=== PATIENT | male | born 1955 | race Caucasian/White ===

== ENCOUNTER 2024-12-02 02:26 | Observation (INO) ==
--- NOTE | 2024-12-02 03:01 | Emergency Department Note ---
History of Present Illness General Chief complaint: Stroke Alert Stated complaint: LOSS OF BAL, RT NUMBNESS Time Seen by Provider: 12/02/24 02:34 History of Present Illness This 62-year-old with history coronary disease, diabetes and blood pressure presents to the ER for right arm numbness and right arm and leg weakness and right hand difficulty grasping objects since 1700 last night. Patient states Wednesday he went for cardiac catheterization and is due to be scheduled for CABG. He is unsure of the abnormalities. Patient states he mainly came in because he had difficulties walking and grasping objects. He comes in at 3 AM the next day from the onset of symptoms. Patient denies chest pain, dyspnea, fever, chills, loss of vision, facial numbness or tingling. No history of stroke. No history of blood clot. Home Medications Medication Instructions Recorded Confirmed Type amlodipine 5 mg tablet 5 mg PO DAILY #30 tabs 04/11/19 12/02/22 Rx aspirin 81 mg tablet,delayed 81 mg PO DAILY #30 tabs 04/11/19 12/02/22 Rx release clopidogrel 75 mg tablet 75 mg PO DAILY #30 tabs 04/11/19 12/02/22 Rx fenofibrate micronized 200 mg 200 mg PO DAILY #30 caps 04/11/19 12/02/22 Rx capsule insulin aspart U-100 100 unit/mL 32 units (0.32 mL) subcut TID #10 04/11/19 12/02/22 Rx subcutaneous solution (Novolog mL U-100 Insulin aspart) levothyroxine 200 mcg tablet 200 mcg PO DAILY #30 tabs 04/11/19 12/02/22 Rx metformin 1,000 mg tablet 1,000 mg PO BID #60 tabs 04/11/19 12/02/22 Rx metoprolol tartrate 25 mg tablet 25 mg PO BID #60 tabs 04/11/19 12/02/22 Rx pravastatin 20 mg tablet 20 mg PO DAILY #90 tabs 07/31/19 12/02/22 Rx tamsulosin 0.4 mg capsule 0.4 mg PO DAILY #90 caps 11/18/23 Rx Allergies Allergy/AdvReac Type Severity Reaction Status Date / Time No Known Allergies Allergy Verified 12/02/22 09:18 Past Med/Surg History Problem List (Updated 12/02/24 @ 04:10 by Denise Garner PA-C) Stroke-like symptoms (Acute) Bilateral nephrolithiasis BPH w urinary obs/LUTS Hematuria (Acute) Dyslipidemia Stented coronary artery CAD (coronary artery disease) HTN (hypertension) (Chronic) Thyroid disease (Chronic) Acute myocardial infarction (Acute) Social History Smoking Status: Never smoker Tobacco Type: Smokeless Tobacco (Dip or Chew) Preferred Language: Serbian Feels Safe at Home: Yes Review of Systems A total of 10 systems reviewed and were otherwise negative Physical Exam Vital Signs Vital Signs - 24 hr 12/02/24 02:29 12/02/24 02:41 12/02/24 02:48 Temperature 36.4 C L Temperature Source Temporal Artery Scan Pulse Rate 68 69 68 Pulse Rate from SpO2 Sensor 68 Respiratory Rate 18 19 Respiratory Effort / Characteristics Non-Labored Spontaneous Respiratory Depth Normal Blood Pressure 160/89 H Blood Pressure Mean 112 Pulse Oximetry 95 96 Oxygen Delivery Method Room Air Room Air Sepsis Recent Fever Within 48 Hours No Sepsis New/Unexplained Change in Mental Status No Sepsis Action Taken by Nursing No Action Required 12/02/24 03:12 12/02/24 03:30 12/02/24 03:48 Temperature Temperature Source Pulse Rate 70 76 70 Pulse Rate from SpO2 Sensor 71 63 70 Respiratory Rate 15 16 15 Respiratory Effort / Characteristics Respiratory Depth Blood Pressure 193/103 H 150/87 H Blood Pressure Mean 133 108 Pulse Oximetry 96 94 96 Oxygen Delivery Method Room Air Room Air Room Air Sepsis Recent Fever Within 48 Hours Sepsis New/Unexplained Change in Mental Status Sepsis Action Taken by Nursing VITALS: Vitals are noted on the nurse's note and reviewed by myself. Vital signs stable. GENERAL: Pleasant gentleman, in no acute distress, nondiaphoretic, well- developed well-nourished. SKIN: The skin was without rashes, erythema, edema, or bruising. There is no tenting of the skin. Capillary reflex less than 2 seconds. HEAD: Normocephalic atraumatic. EARS: External auditory canals clear EYES: Pupils equal round and reactive to light and accommodation. Conjunctivae without injection, sclerae without icterus. Extraocular movements intact. NOSE: Patent, no discharge. MOUTH: Mucous membranes moist. Pharynx without erythema or exudate. Uvula midline. Airway patent. Tongue does not deviate. NECK: Supple without nuchal rigidity. No lymphadenopathy. No thyromegaly. Cervical spine is nontender. No JVD. HEART: Regular rate and rhythm LUNGS: Clear to auscultation bilaterally without wheezes, rales or rhonchi. No retractions or accessory muscle use. ABDOMEN: Positive bowel sounds x 4. Normal tympanic percussion. Soft, nontender, without masses or organomegaly. Cross sign negative. No guarding or rebound tenderness. No CVA tenderness MUSCULOSKELETAL: No muscle atrophy, erythema, or edema noted. Right arm slightly weaker than the left, right leg slightly weaker than the left. Patient has difficulty grasping with the right hand. No difficulties grasping with the left hand. NEURO: Patient was alert and oriented to person place and time. Normal sensation to light and sharp touch. Patient has difficulty grasping with the right hand. Patient has difficulty with [id number] with the right hand. Patient has no deficits with the left hand with grasping objects or [id number]. No other focal neurological deficits. NIH of 3 Course Administered Medications Discontinued Medications Sodium Chloride (Nss) 500 mls @ 999 mls/hr IV .Q31M ONE Stop: 12/02/24 03:54 Last Infusion: 12/02/24 04:06 Dose: Infused Documented By: Admin: 12/02/24 03:33 Dose: 999 mls/hr Documented By: SRAVANTHI Ioversol (Optiray 320 125ml) 118 ml IV ONCE ONE Stop: 12/02/24 03:14 Last Admin: 12/02/24 03:13 Dose: 118 ml Documented By: THO Critical Care Time Critical Care Time: Yes Total Critical Care Time: 35 I have personally spent 35 minutes of critical care time in the direct management of this patient. This includes bedside care, interpretation of diagnostic studies, and testing, discussion with consultants, patient, and family members, and other required patient management activities. This 35 minutes is in excess of all separately billable procedures. Medical Decision Making Medical Records Attestation: I reviewed the patient's medical records. Home Medications Current Medication List: was personally reviewed by me Laboratory Data Attestation: I reviewed the patient's lab results. 12/02/24 02:40 12/02/24 02:40 Lab Results 07/12/25 07/12/25 07/12/25 Range/Units 02:40 02:44 02:50 WBC 6.39 (4.8-10.8) K/ul RBC 4.96 (4.70-6.10) M/uL Hgb 14.0 (14.0-18.0) g/dl POC Hgb 14.3 (14.0-18.0) g/dl Hct 43.0 (42.0-52.0) % POC Hct 42 (42-52) % MCV 86.7 (80.0-100.0) fL MCH 28.2 (25.0-34.0) pg MCHC 32.6 (32.0-36.0) g/dL RDW Std Deviation 43.2 (36.4-46.3) fL RDW Coeff of Nikolay 13.7 (11.5-14.5) % Plt Count 191 (130-400) K/uL MPV 11.7 (9.4-12.4) fL Immature Gran % (Auto) 0.5 % Neut % (Auto) 53.3 % Lymph % (Auto) 27.5 % [place] % (Auto) 13.1 % Eos % (Auto) 4.2 % Baso % (Auto) 1.4 % Neut # (Auto) 3.40 (1.40-6.50) K/uL Lymph # (Auto) 1.76 (1.20-3.40) K/uL [place] # (Auto) 0.84 H (0.11-0.59) K/uL Eos # (Auto) 0.27 (0.00-0.50) K/uL Baso # (Auto) 0.09 (0.00-0.20) K/uL Immature Gran # (Auto) 0.03 (0.01-0.20) K/uL PT 11.2 (9.0-12.0) Seconds INR 1.0 (0.9-1.1) APTT 27 (21-31) Seconds PTT Ratio 1.0 POC Sodium 143 (135-144) mmol/L Sodium 142 (136-145) mmol/L POC Potassium 4.0 (3.3-5.0) mmol/L Potassium 4.0 (3.5-5.1) mmol/L POC Chloride 106 (101-112) mmol/L Chloride 107 (98-107) mmol/L Carbon Dioxide 27 (21-32) mmol/L POC Total CO2 25 (24-31) mmol/L Anion Gap 8 (3-11) POC Anion Gap 18.0 (16-25) mmol/L POC BUN 30 H (7-18) mg/dl BUN 29 H (6-23) mg/dl Creatinine 1.71 H (0.6-1.4) mg/dl POC Creatinine 1.8 H (0.6-1.3) mg/dl Est Cr Clr Drug Dosing 57.9 ml/min eGFR 43.33 BUN/Creatinine Ratio 17.0 (10-20) Glucose 119 H (70-99(Fasting)) mg/dl POC Glucose 115 H (70-99) mg/dl POC Glucose (other) 118 H (70-99) mg/dl Calcium 10.1 (8.6-10.3) mg/dl POC Ioniz Calcium Samuel 1.22 (1.12-1.32) mmol/l Magnesium 1.8 (1.7-2.4) mg/dl Total Bilirubin 0.4 (0.2-1.0) mg/dl AST 19 (13-39) U/L ALT 15 (7-52) U/L Alkaline Phosphatase 46 (34-104) U/L Troponin I High Sens 21.5 H (0-20) pg/ml Total Protein 7.7 (6.0-8.3) gm/dl Albumin 4.3 (3.4-5.0) gm/dl Globulin 3.4 (2.5-4.0) gm/dl Albumin/Globulin Ratio 1.3 (0.9-2) Imaging Data Attestation: I personally reviewed and interpreted this imaging study as follows: Radiologist's Impression: Head CT 12/02/24 02:41 EXAM: CT head/brain wo con CLINICAL HISTORY: neuro deficit, acute stroke suspected, R arm/leg TECHNIQUE: Multiple axial images are obtained from the skull base to the vertex without contrast. CT scan was performed according to ALARA (as low as reasonable achievable). COMPARISON: None. FINDINGS: There is cerebral atrophy. No evidence of space occupying lesion, hemorrhage, edema, mass effect, midline shift, extra axial collection, or hydrocephalus is noted. Basal cisterns are symmetric and normal in size and configuration. There are scattered periventricular hypodensities as can be seen with chronic microvascular ischemic changes. The orozco-white matter differentiation is preserved. Bilateral maxillary sinusitis. Rest of paranasal sinuses and mastoid air cells are well aerated. Orbital contents are within normal limits. Bony structures are intact. IMPRESSION: 1. No evidence of acute intracranial abnormality is demonstrated. 2. Chronic microvascular ischemic changes. 3. Cerebral atrophy. 4. CT scan is negative for large territorial ischemic / hemorrhagic stroke. 5. Non contrast CT can be negative in the setting of hyperacute infarct/small ischemic infarct and further evaluation with diffusion weighted MRI is recommended as clinically appropriate. Electronically signed by Anjel Edge 12-02-2024 03:36 AM Head CTA 12/02/24 02:41 EXAM: CT angio head w con CLINICAL HISTORY: neuro deficit, acute stroke suspected, R arm/leg TECHNIQUE: Contrast enhanced thin slice CT angiography scan of the cerebral vessels was performed with intravenous contrast. Angiographic images were processed, 3D MIP images were acquired for interpretation. Contiguous axial images were obtained. Reformatted coronal and sagittal images were also reviewed. If IV contrast material had not been administered, the likelihood of detecting abnormalities relevant to the patients condition would have been substantially decreased. CT scan was performed according to ALARA (as low as reasonable achievable). COMPARISON: none FINDINGS: Diffuse atheroscleotic changes with eccentric calcifications involving C5-C7 segments of bilateral internal carotid areteries with no significant stenosis Rest of the bilateral internal carotid arteries show normal course, calibre and opacification. Their division into the anterior cerebral artery and middle cerebral artery is defined. 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 M1, M2 segments are normal on both the sides. Bilateral vertebral arteries are seen to unite the form the basilar artery in a normal fashion. Non dominant right vertebral artery Basilar artery shows normal course, caliber and opacification. Its division into the posterior cerebral arteries is defined. Bilateral P1 and P2 segments are normal. Visualized venous structures show normal opacification. No evidence of intracranial aneurysm or AV malformation is seen. IMPRESSION: 1. No evidence of aneurysm. No evidence of dissection. 2. 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 Diffuse atheroscleotic changes with eccentric calcifications involving C5-C7 segments of bilateral internal carotid areteries with no significant stenosis 4. Non dominant right vertebral artery Electronically signed by Anjel Edge 12-02-2024 03:59 AM Neck CTA 12/02/24 02:41 EXAM: CT angio neck with con CLINICAL HISTORY: neuro deficit, acute stroke suspected, R arm/leg TECHNIQUE: Contrast enhanced thin slice CT angiography scan of the carotid vessels was performed with intravenous contrast. Angiographic images were processed, 3D MIP images were acquired for interpretation.Contiguous axial images were obtained. Reformatted coronal and sagittal images were also reviewed. If IV contrast material had not been administered, the likelihood of detecting abnormalities relevant to the patients condition would have been substantially decreased. CT scan was performed according to ALARA (as low as reasonable achievable). COMPARISON: None. FINDINGS: Atherosclerotic calcifications are noted involving bilateral carotid bulb without significant stenosis. Included great vessels of the aortic arch are grossly unremarkable. Common carotid artery, carotid Bulb, internal carotid artery , and origin of the external carotid artery are well opacified. Vertebral arteries are well opacified. Jugular veins are well opacified. Included lung apices are grossly unremarkable. Thyroid gland appears unremarkable. IMPRESSION: No evidence of stenosis or aneurysm. No evidence of dissection. Atherosclerotic calcifications are noted involving bilateral carotid bulb without significant stenosis. Electronically signed by Anjel Edge 12-02-2024 03:48 AM [facility] Narrative Prior records/ancillary studies reviewed and summarized above. Nursing notes reviewed. Additional history obtained from family. The patient's history was concerning for stroke symptoms. Differential diagnosis: Etiologies such as CVA, TIA, metabolic, infection, hypo/hyperglycemia, electrolyte abnormalities, cardiac sources, intracerebral event, toxicologic, neurologic, as well as others were entertained. Physical examination: As above. ER treatment provided: IV Lock An order was placed for continuous cardiac monitoring. The monitor shows a rate of 60-100 with a sinus rhythm per my interpretation. Stroke alert was immediately initiated upon my evaluation and patient was sent down for imaging I reviewed the patient's recent cardiac catheterization report. He is recommended to have a CABG for his coronary artery disease. On reassessment the patient felt better. Diagnostics interpretation by me: ECG: Ordered for stroke symptoms EKG: Normal sinus, normal intervals, Q waves in the inferior leads, rate of 67. Impression normal sinus rhythm Q waves in the inferior leads independently interpreted by myself The labs Independently Interpreted by myself revealed no worrisome leukocytosis, creatinine 1.7, glucose 119. NIH of 3 (patient has some mild weakness in the right arm and right leg and difficulty grasping objects with the right hand) Imaging studies: Imaging was reviewed and read by radiology Consultation: A consultation was placed with the telestroke neurologist at [facility], Dr Shonda Ortiz. The case was discussed and diagnostics were reviewed. The patient was evaluated in the ER for further treatment. She states the patient is outside the window for TNK and recommends brain MRI and admission for stroke workup. Consultation was placed with medicine and the case was discussed. Patient will be admitted to the medical service. Brain MRI was ordered. Exam and history seem consistent with possible CVA. Telestroke was admittedly initiated upon my initial evaluation despite the patient being outside the window for treatment for TNK. Imaging was negative. Telestroke recommends brain MRI and admission for stroke workup. Medicine was consulted and the case was discussed. Patient was mated to the medical service. Patient and family are agreeable. By the evaluation outlined above emergent etiologies such as infection, electrolyte abnormalities, cardiac sources, toxologic, abnormalities blood glucose, metabolic, as well as others were deemed relatively unlikely. The pt informed about the findings as listed above. All questions were answered and pleased with the treatment. The chart was completed utilizing [employer] Speech voice recognition software. Grammatical errors, random word insertions, pronoun errors, and incomplete sentences are an occassional consequence of this system due to software limitations, ambient noise, and hardware issues. Any formal questions or concerns about the content, text, or information contained within the body of this dictation should be directly addressed to the physician real estate executive assistant for clarification. Impression & Plan Stroke-like symptoms Discharge Plan Visit Data Chief Complaint: Stroke Alert Stated Complaint: LOSS OF BAL, RT NUMBNESS ED Provider: Lora Flores ED Midlevel Provider: Denise Garner Discharge Problem: Stroke-like symptoms Patient Disposition: Admitted As Inpatient Condition: Fair Forms Stand Alone Forms: My [facility] [place] [facility] Prescriptions Prescriptions: No Action pravastatin 20 mg tablet 20 mg PO DAILY Qty: 90 3RF tamsulosin 0.4 mg capsule 0.4 mg PO DAILY Qty: 90 3RF clopidogrel 75 mg tablet 75 mg PO DAILY Qty: 30 2RF metformin 1,000 mg tablet 1,000 mg PO BID Qty: 60 2RF Novolog U-100 Insulin aspart 100 unit/mL solution 32 units SQ TID Qty: 10 2RF aspirin 81 mg tablet,delayed release (DR/EC) 81 mg PO DAILY Qty: 30 2RF fenofibrate micronized 200 mg capsule 200 mg PO DAILY Qty: 30 2RF levothyroxine 200 mcg tablet 200 mcg PO DAILY Qty: 30 2RF metoprolol tartrate 25 mg tablet 25 mg PO BID Qty: 60 2RF amlodipine 5 mg tablet 5 mg PO DAILY Qty: 30 2RF Referrals Referrals: Anjel Martinez MD [Primary Care Provider] -
[2024-12-02 03:02] LABS: Hematocrit (blood only) 43.0 % (42.0-52.0); Hemoglobin 14.0 g/dl (14.0-18.0); Immature Granulocytes # (auto) 0.03 K/uL (0.01-0.20); Immature Granulocytes % (auto) 0.5 %; Mean Corpuscular Hemoglobin 28.2 pg (25.0-34.0); Mean Corpuscular Volume 86.7 fL (80.0-100.0); Platelet Count 191 K/uL (130-400); RDW Standard Deviation 43.2 fL (36.4-46.3); Red Blood Count 4.96 M/uL (4.70-6.10); White Blood Count 6.39 K/ul (4.8-10.8)
[2024-12-02] MEDS: OPTIRAY 320 125ml IV ONE (03:13)
[2024-12-02 03:19] LABS: Alanine Aminotransferase 15.0 U/L (7-52); Albumin Globulin Ratio 1.3 (0.9-2); Alkaline Phosphatase 46.0 U/L (34-104); Anion Gap 8.0 (3-11); Bilirubin,Total 0.4 mg/dl (0.2-1.0); Blood Urea Nitrogen 29.0 mg/dl (6-23); Calcium 10.1 mg/dl (8.6-10.3); Carbon Dioxide 27.0 mmol/L (21-32); Chloride 107.0 mmol/L (98-107); Creatinine Clr Calc Pharmacy 57.9 ml/min; Globulin 3.4 gm/dl (2.5-4.0); Glucose 119.0 mg/dl (70-99(Fasting)); Magnesium 1.8 mg/dl (1.7-2.4); Potassium 4.0 mmol/L (3.5-5.1); Sodium 142.0 mmol/L (136-145); Total Protein 7.7 gm/dl (6.0-8.3)
[2024-12-02 03:28] LABS: INR 1.0 (0.9-1.1); Partial Thromboplastin Time 27 Seconds (21-31); Prothrombin Time 11.2 Seconds (9.0-12.0)
[2024-12-02] MEDS: SODIUM CHLORIDE 0.9% 500 ML IV ONE (03:33)
--- NOTE | 2024-12-02 03:36 | CT Scan Report ---
EXAM: CT head/brain wo con CLINICAL HISTORY: neuro deficit, acute stroke suspected, R arm/leg TECHNIQUE: Multiple axial images are obtained from the skull base to the vertex without contrast. CT scan was performed according to ALARA (as low as reasonable achievable). COMPARISON: None. FINDINGS: There is cerebral atrophy. No evidence of space occupying lesion, hemorrhage, edema, mass effect, midline shift, extra axial collection, or hydrocephalus is noted. Basal cisterns are symmetric and normal in size and configuration. There are scattered periventricular hypodensities as can be seen with chronic microvascular ischemic changes. The orozco-white matter differentiation is preserved. Bilateral maxillary sinusitis. Rest of paranasal sinuses and mastoid air cells are well aerated. Orbital contents are within normal limits. Bony structures are intact. IMPRESSION: 1. No evidence of acute intracranial abnormality is demonstrated. 2. Chronic microvascular ischemic changes. 3. Cerebral atrophy. 4. CT scan is negative for large territorial ischemic / hemorrhagic stroke. 5. Non contrast CT can be negative in the setting of hyperacute infarct/small ischemic infarct and further evaluation with diffusion weighted MRI is recommended as clinically appropriate. Electronically signed by Anjel Edge 12-02-2024 03:36 AM
--- NOTE | 2024-12-02 03:49 | CT Scan Report ---
EXAM: CT angio neck with con CLINICAL HISTORY: neuro deficit, acute stroke suspected, R arm/leg TECHNIQUE: Contrast enhanced thin slice CT angiography scan of the carotid vessels was performed with intravenous contrast. Angiographic images were processed, 3D MIP images were acquired for interpretation.Contiguous axial images were obtained. Reformatted coronal and sagittal images were also reviewed. If IV contrast material had not been administered, the likelihood of detecting abnormalities relevant to the patients condition would have been substantially decreased. CT scan was performed according to ALARA (as low as reasonable achievable). COMPARISON: None. FINDINGS: Atherosclerotic calcifications are noted involving bilateral carotid bulb without significant stenosis. Included great vessels of the aortic arch are grossly unremarkable. Common carotid artery, carotid Bulb, internal carotid artery , and origin of the external carotid artery are well opacified. Vertebral arteries are well opacified. Jugular veins are well opacified. Included lung apices are grossly unremarkable. Thyroid gland appears unremarkable. IMPRESSION: No evidence of stenosis or aneurysm. No evidence of dissection. Atherosclerotic calcifications are noted involving bilateral carotid bulb without significant stenosis. Electronically signed by Anjel Edge 12-02-2024 03:48 AM
--- NOTE | 2024-12-02 04:00 | CT Scan Report ---
EXAM: CT angio head w con CLINICAL HISTORY: neuro deficit, acute stroke suspected, R arm/leg TECHNIQUE: Contrast enhanced thin slice CT angiography scan of the cerebral vessels was performed with intravenous contrast. Angiographic images were processed, 3D MIP images were acquired for interpretation. Contiguous axial images were obtained. Reformatted coronal and sagittal images were also reviewed. If IV contrast material had not been administered, the likelihood of detecting abnormalities relevant to the patients condition would have been substantially decreased. CT scan was performed according to ALARA (as low as reasonable achievable). COMPARISON: none FINDINGS: Diffuse atheroscleotic changes with eccentric calcifications involving C5-C7 segments of bilateral internal carotid areteries with no significant stenosis Rest of the bilateral internal carotid arteries show normal course, calibre and opacification. Their division into the anterior cerebral artery and middle cerebral artery is defined. 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 M1, M2 segments are normal on both the sides. Bilateral vertebral arteries are seen to unite the form the basilar artery in a normal fashion. Non dominant right vertebral artery Basilar artery shows normal course, caliber and opacification. Its division into the posterior cerebral arteries is defined. Bilateral P1 and P2 segments are normal. Visualized venous structures show normal opacification. No evidence of intracranial aneurysm or AV malformation is seen. IMPRESSION: 1. No evidence of aneurysm. No evidence of dissection. 2. 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 Diffuse atheroscleotic changes with eccentric calcifications involving C5-C7 segments of bilateral internal carotid areteries with no significant stenosis 4. Non dominant right vertebral artery Electronically signed by Anjel Edge 12-02-2024 03:59 AM
--- NOTE | 2024-12-02 04:19 | History & Physical Report ---
Date of Service December 02, 2024 Assessment & Plan (1) TIA (transient ischemic attack): Plan: Assessment and plan below following discussion of case with ED provider and reviewing patient history/pertinent normal/abnormal diagnostic test results. TIA Hypertension, elevated secondary to above hx CAD status post stent, multivessel CAD on recent diagnostic cardiac catheterization, patient scheduled to see [facility] [place] surgeon for evaluation for CABG next week hyperlipidemia, on statin Rx Hematuria rule out UTI/recurrent urolithiasis ARF on CRI DM 2 insulin requiring, suboptimal control as of recent hemoglobin A1c of 7.6 last July 2024 hypothyroidism, euthyroid as above recent outpatient TSH past tobacco abuse OBS Admit to med/tele Neurochecks Permissive hypertension for now Continue antiplatelet Rx for secondary stroke prevention if follow-up H&H stable given new hematuria symptoms MRI brain Additional stroke workup contingent on MRI results Check UA Monitor creatinine response to IVF, hold home diuretic/ARB/NSAID until creatinine back to baseline CT abdomen pelvis re: hematuria with abdominal pain N.p.o. until CTAP resulted Basal bolus insulin adjusted for n.p.o. status, ISS BG goal 110-140 Update lipid profile and hemoglobin A1c DVT prophylaxis. SCDs re: hematuria Full code Patient partner requesting updates providers. Briseida Rich, contact #[phone]. Text document was generated using [employer] voice recognition software. It may contain grammatical or spelling errors. Kindly contact undersigned for clarification of any documentation item in question. History of Present Illness Chief Complaint: Right-sided weakness/numbness, imbalance, Primary Care Provider: Dr. Collazo History obtained from patient, family, and records. Medical history significant for CAD status post stent, hypertension, hyperlipidemia, CRI (baseline creatinine 1.4), DM 2 insulin requiring, hypothyroidism, BPH, urolithiasis, GERD, HSV on chronic suppression Rx, past tobacco abuse. Last confinement 2013 for ACS status post RCA stent placement. Patient underwent outpatient diagnostic cardiac catheterization at [facility] 3 days ago because of abnormal stress test. Hemodynamically significant CAD on cath. Left main with mild disease. Mid LAD with 90% stenosis followed by diffuse disease. 60% OM2 occlusion. D RCA 100% chronic total occlusion. Severe RPDA disease as per report. Outpatient [facility] [place] surgery referral for possible CABG scheduled for next week. 2 days ago, patient noted achy lower abdominal discomfort associated with intermittent hematuria symptoms. No fever, no chills. Yesterday, patient had right sided weakness/numbness with a sensation of imbalance. No headache, no dizziness. Patient compliant with home medications. 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 Denies unusual chest pain/SOB on exertion. Stroke alert called upon arrival at the ER. Right sided numbness/weakness symptoms currently improving as per patient. 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 Allergies Allergy/AdvReac Type Severity Reaction Status Date / Time No Known Allergies Allergy Verified 12/02/24 04:13 Home Medications Medication Instructions Recorded Confirmed Type amlodipine 5 mg tablet 5 mg PO DAILY #30 tabs 04/11/19 12/02/24 Rx aspirin 81 mg tablet,delayed 81 mg PO DAILY #30 tabs 04/11/19 12/02/24 Rx release clopidogrel 75 mg tablet 75 mg PO DAILY #30 tabs 04/11/19 12/02/24 Rx fenofibrate micronized 200 mg 200 mg PO DAILY #30 caps 04/11/19 12/02/24 Rx capsule insulin aspart U-100 100 unit/mL 32 units (0.32 mL) subcut TID #10 04/11/19 12/02/24 Rx subcutaneous solution (Novolog mL U-100 Insulin aspart) levothyroxine 200 mcg tablet 200 mcg PO DAILY #30 tabs 04/11/19 12/02/24 Rx metformin 1,000 mg tablet 1,000 mg PO BID #60 tabs 04/11/19 12/02/24 Rx pravastatin 20 mg tablet 20 mg PO DAILY #90 tabs 07/31/19 12/02/24 Rx tamsulosin 0.4 mg capsule 0.4 mg PO DAILY #90 caps 11/18/23 12/02/24 Rx acyclovir 400 mg tablet 400 mg PO BID 12/02/24 12/02/24 History carvedilol 25 mg tablet (Coreg) 25 mg PO AMPM 12/02/24 12/02/24 History coenzyme Q10 200 mg capsule 200 mg PO QAM 12/02/24 12/02/24 History diclofenac sodium 75 mg 75 mg PO BID 12/02/24 12/02/24 History tablet,delayed release evolocumab 140 mg/mL subcutaneous 140 mg subcut USEASDIRECTD 12/02/24 12/02/24 History pen injector (Theodore Buttick) insulin aspart U-100 100 unit/mL 32 unit subcut TID 12/02/24 12/02/24 History (3 mL) subcutaneous pen (Novolog FlexPen U-100 Insulin aspart) insulin glargine 100 unit/mL (3 110 unit subcut HS 12/02/24 12/02/24 History mL) subcutaneous pen (Lantus Solostar U-100 Insulin) isosorbide mononitrate 30 mg 30 mg PO QAM 12/02/24 12/02/24 History tablet,extended release 24 hr omega 3-ebz-aoa-fish oil 1,000 mg 1 cap PO DAILY 12/02/24 12/02/24 History (120 mg-180 mg) capsule (Fish Oil) valsartan 160 1 tab PO QAM 12/02/24 12/02/24 History mg-hydrochlorothiazide 25 mg tablet (Diovan HCT) Past Med/Surg History Problem List (Updated 12/02/24 @ 05:33 by Prasad Machado MD) TIA (transient ischemic attack) Stroke-like symptoms (Acute) Bilateral nephrolithiasis BPH w urinary obs/LUTS Hematuria (Acute) Dyslipidemia Stented coronary artery CAD (coronary artery disease) HTN (hypertension) (Chronic) Thyroid disease (Chronic) Acute myocardial infarction (Acute) Social History Smoking Status: Never smoker Tobacco Type: Smokeless Tobacco (Dip or Chew) Preferred Language: Beninese Feels Safe at Home: Yes Review of Systems Review of Systems: As per HPI, all other systems reviewed and negative Physical Exam Physical Exam: GENERAL: Comfortable, slightly anxious, pleasant, slightly hard of hearing, obese, no respiratory distress SKIN: Normal color, warm HEENT: Alopecia, pink palpebral conjunctivae, no ptosis, moist buccal mucosa NECK : Supple, no tenderness CHEST : CTA, no tenderness HEART : RRR, no obvious murmurs ABDOMEN: Some distention, minimal hypogastric tenderness EXTREMITIES : No LE swelling/tenderness, palpable pulses, no other conspicuous deformities noted NEUROLOGIC : Coherent, no facial asymmetry, MMTs 5/5, gait and stance not assessed Results & Data Results & Data Vital Signs (Past 12 Hours) Vital Signs Temp Pulse Resp BP Pulse Ox O2 Del Method 12/02/24 03:48 70 15 96 Room Air 12/02/24 03:30 76 16 150/87 H 94 Room Air 12/02/24 03:12 70 15 193/103 H 96 Room Air 12/02/24 02:48 68 19 96 Room Air 12/02/24 02:41 69 12/02/24 02:29 36.4 C L 68 18 160/89 H 95 Room Air Laboratory Results Laboratory Results WBC 6.39 K/ul (4.8-10.8) 12/02/24 02:40 RBC 4.96 M/uL (4.70-6.10) 12/02/24 02:40 Hgb 14.0 g/dl (14.0-18.0) 12/02/24 02:40 POC Hgb 14.3 g/dl (14.0-18.0) 12/02/24 02:50 Hct 43.0 % (42.0-52.0) 12/02/24 02:40 POC Hct 42 % (42-52) 12/02/24 02:50 MCV 86.7 fL (80.0-100.0) 12/02/24 02:40 MCH 28.2 pg (25.0-34.0) 12/02/24 02:40 MCHC 32.6 g/dL (32.0-36.0) 12/02/24 02:40 RDW Std Deviation 43.2 fL (36.4-46.3) 12/02/24 02:40 RDW Coeff of Nikolay 13.7 % (11.5-14.5) 12/02/24 02:40 Plt Count 191 K/uL (130-400) 12/02/24 02:40 MPV 11.7 fL (9.4-12.4) 12/02/24 02:40 Immature Gran % (Auto) 0.5 % 12/02/24 02:40 Neut % (Auto) 53.3 % 12/02/24 02:40 Lymph % (Auto) 27.5 % 12/02/24 02:40 [place] % (Auto) 13.1 % 12/02/24 02:40 Eos % (Auto) 4.2 % 12/02/24 02:40 Baso % (Auto) 1.4 % 12/02/24 02:40 Neut # (Auto) 3.40 K/uL (1.40-6.50) 12/02/24 02:40 Lymph # (Auto) 1.76 K/uL (1.20-3.40) 12/02/24 02:40 [place] # (Auto) 0.84 K/uL (0.11-0.59) H 12/02/24 02:40 Eos # (Auto) 0.27 K/uL (0.00-0.50) 12/02/24 02:40 Baso # (Auto) 0.09 K/uL (0.00-0.20) 12/02/24 02:40 Immature Gran # (Auto) 0.03 K/uL (0.01-0.20) 12/02/24 02:40 PT 11.2 Seconds (9.0-12.0) 12/02/24 02:40 INR 1.0 (0.9-1.1) 12/02/24 02:40 APTT 27 Seconds (21-31) 12/02/24 02:40 PTT Ratio 1.0 12/02/24 02:40 POC Sodium 143 mmol/L (135-144) 12/02/24 02:50 Sodium 142 mmol/L (136-145) 12/02/24 02:40 POC Potassium 4.0 mmol/L (3.3-5.0) 12/02/24 02:50 Potassium 4.0 mmol/L (3.5-5.1) 12/02/24 02:40 POC Chloride 106 mmol/L (101-112) 12/02/24 02:50 Chloride 107 mmol/L (98-107) 12/02/24 02:40 Carbon Dioxide 27 mmol/L (21-32) 12/02/24 02:40 POC Total CO2 25 mmol/L (24-31) 12/02/24 02:50 Anion Gap 8 (3-11) 12/02/24 02:40 POC Anion Gap 18.0 mmol/L (16-25) 12/02/24 02:50 POC BUN 30 mg/dl (7-18) H 12/02/24 02:50 BUN 29 mg/dl (6-23) H 12/02/24 02:40 Creatinine 1.71 mg/dl (0.6-1.4) H 12/02/24 02:40 POC Creatinine 1.8 mg/dl (0.6-1.3) H 12/02/24 02:50 Est Cr Clr Drug Dosing 57.9 ml/min 12/02/24 02:40 eGFR 43.33 12/02/24 02:40 BUN/Creatinine Ratio 17.0 (10-20) 12/02/24 02:40 Glucose 119 mg/dl (70-99(Fasting)) H 12/02/24 02:40 POC Glucose 115 mg/dl (70-99) H 12/02/24 02:44 POC Glucose (other) 118 mg/dl (70-99) H 12/02/24 02:50 Calcium 10.1 mg/dl (8.6-10.3) 12/02/24 02:40 POC Ioniz Calcium Samuel 1.22 mmol/l (1.12-1.32) 12/02/24 02:50 Magnesium 1.8 mg/dl (1.7-2.4) 12/02/24 02:40 Total Bilirubin 0.4 mg/dl (0.2-1.0) 12/02/24 02:40 AST 19 U/L (13-39) 12/02/24 02:40 ALT 15 U/L (7-52) 12/02/24 02:40 Alkaline Phosphatase 46 U/L (34-104) 12/02/24 02:40 Troponin I High Sens 21.5 pg/ml (0-20) H 12/02/24 02:40 Total Protein 7.7 gm/dl (6.0-8.3) 12/02/24 02:40 Albumin 4.3 gm/dl (3.4-5.0) 12/02/24 02:40 Globulin 3.4 gm/dl (2.5-4.0) 12/02/24 02:40 Albumin/Globulin Ratio 1.3 (0.9-2) 12/02/24 02:[address] 12/02/24 02:41 EXAM: CT head/brain wo con CLINICAL HISTORY: neuro deficit, acute stroke suspected, R arm/leg TECHNIQUE: Multiple axial images are obtained from the skull base to the vertex without contrast. CT scan was performed according to ALARA (as low as reasonable achievable). COMPARISON: None. FINDINGS: There is cerebral atrophy. No evidence of space occupying lesion, hemorrhage, edema, mass effect, midline shift, extra axial collection, or hydrocephalus is noted. Basal cisterns are symmetric and normal in size and configuration. There are scattered periventricular hypodensities as can be seen with chronic microvascular ischemic changes. The orozco-white matter differentiation is preserved. Bilateral maxillary sinusitis. Rest of paranasal sinuses and mastoid air cells are well aerated. Orbital contents are within normal limits. Bony structures are intact. IMPRESSION: 1. No evidence of acute intracranial abnormality is demonstrated. 2. Chronic microvascular ischemic changes. 3. Cerebral atrophy. 4. CT scan is negative for large territorial ischemic / hemorrhagic stroke. 5. Non contrast CT can be negative in the setting of hyperacute infarct/small ischemic infarct and further evaluation with diffusion weighted MRI is recommended as clinically appropriate. Electronically signed by Anjel Edge 12-02-2024 03:36 AM Head CTA 12/02/24 02:41 EXAM: CT angio head w con CLINICAL HISTORY: neuro deficit, acute stroke suspected, R arm/leg TECHNIQUE: Contrast enhanced thin slice CT angiography scan of the cerebral vessels was performed with intravenous contrast. Angiographic images were processed, 3D MIP images were acquired for interpretation. Contiguous axial images were obtained. Reformatted coronal and sagittal images were also reviewed. If IV contrast material had not been administered, the likelihood of detecting abnormalities relevant to the patients condition would have been substantially decreased. CT scan was performed according to ALARA (as low as reasonable achievable). COMPARISON: none FINDINGS: Diffuse atheroscleotic changes with eccentric calcifications involving C5-C7 segments of bilateral internal carotid areteries with no significant stenosis Rest of the bilateral internal carotid arteries show normal course, calibre and opacification. Their division into the anterior cerebral artery and middle cerebral artery is defined. 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 M1, M2 segments are normal on both the sides. Bilateral vertebral arteries are seen to unite the form the basilar artery in a normal fashion. Non dominant right vertebral artery Basilar artery shows normal course, caliber and opacification. Its division into the posterior cerebral arteries is defined. Bilateral P1 and P2 segments are normal. Visualized venous structures show normal opacification. No evidence of intracranial aneurysm or AV malformation is seen. IMPRESSION: 1. No evidence of aneurysm. No evidence of dissection. 2. 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 Diffuse atheroscleotic changes with eccentric calcifications involving C5-C7 segments of bilateral internal carotid areteries with no significant stenosis 4. Non dominant right vertebral artery Electronically signed by Anjel Edge 12-02-2024 03:59 AM Neck CTA 12/02/24 02:41 EXAM: CT angio neck with con CLINICAL HISTORY: neuro deficit, acute stroke suspected, R arm/leg TECHNIQUE: Contrast enhanced thin slice CT angiography scan of the carotid vessels was performed with intravenous contrast. Angiographic images were processed, 3D MIP images were acquired for interpretation.Contiguous axial images were obtained. Reformatted coronal and sagittal images were also reviewed. If IV contrast material had not been administered, the likelihood of detecting abnormalities relevant to the patients condition would have been substantially decreased. CT scan was performed according to ALARA (as low as reasonable achievable). COMPARISON: None. FINDINGS: Atherosclerotic calcifications are noted involving bilateral carotid bulb without significant stenosis. Included great vessels of the aortic arch are grossly unremarkable. Common carotid artery, carotid Bulb, internal carotid artery , and origin of the external carotid artery are well opacified. Vertebral arteries are well opacified. Jugular veins are well opacified. Included lung apices are grossly unremarkable. Thyroid gland appears unremarkable. IMPRESSION: No evidence of stenosis or aneurysm. No evidence of dissection. Atherosclerotic calcifications are noted involving bilateral carotid bulb without significant stenosis. Electronically signed by Anjel Edge 12-02-2024 03:48 AM Diagnostic Findings Chest x-ray as per my interpretation atelectasis EKG as per my interpretation : Rate 65, NSR, normal axis, inferior infarct, no ischemia
[2024-12-02] MEDS: MAGNESIUM SULFATE / D5W 1 GM/100 ML BAG IV STA (04:45)
[2024-12-02] MEDS ORDERED: HYDROmorphone INJ 0.5 MG/0.5 ML SYR IV PRN (05:04)
[2024-12-02] MEDS ORDERED: PROMETHAZINE 12.5 MG/50.5 ML BAG IV PRN (05:04)
[2024-12-02] MEDS ORDERED: PHARMACIST DISCHARGE MED REC CONSULT PRN (05:05)
[2024-12-02] MEDS ORDERED: LORazepam 0.5 MG TAB PO PRN (05:05)
[2024-12-02 05:15] LABS: Hematocrit (blood only) 37.8 % (42.0-52.0); Hemoglobin 12.3 g/dl (14.0-18.0)
[2024-12-02] MEDS ORDERED: CARBOHYDRATES FOR HYPOGLYCEMIA PO PRN (05:53)
[2024-12-02] MEDS ORDERED: GLUCAGON FOR INJ 1 MG VIAL SQ PRN (05:53)
[2024-12-02] MEDS ORDERED: GLUCOSE 40% GEL 15 GM TUBE PO PRN (05:53)
[2024-12-02] MEDS ORDERED: DEXTROSE 50% 50 ML SYRINGE IV PRN (05:53)
[2024-12-02] MEDS ORDERED: GLUCOSE 10 TAB/TUBE PO PRN (05:53)
--- NOTE | 2024-12-02 05:56 | XRay Report ---
EXAM: XR chest 1V portable CLINICAL HISTORY: ARF. TECHNIQUE: An X-ray image of the chest is obtained in AP projection. COMPARISON: No prior studies are available for comparison. FINDINGS: Pulmonary Parenchyma: No evidence of consolidation, collapse, or focal opacities. No pulmonary nodules are identified. No evidence of pleural effusion or pleural thickening. Heart and Mediastinum: Heart size and shape are normal. No mediastinal widening or masses. No hilar or mediastinal lymphadenopathy. Bony Thorax: Bony thorax appears intact without fractures or deformities. Soft Tissues: Soft tissues overlying the chest wall are unremarkable. IMPRESSION: No acute cardiopulmonary pathology. Electronically signed by Sergio Lyman 12-02-2024 05:56 AM
[2024-12-02] MEDS: LEVOTHYROXINE SODIUM 200 MCG TABLET PO SCH (05:57)
[2024-12-02] MEDS: LACTATED RINGER'S 1,000 ML IV ONE (06:04)
[2024-12-02] MEDS: INSULIN ASPART PER UNIT CHARGE SC SCH ×2 (06:04→13:52)
--- NOTE | 2024-12-02 07:13 | CT Scan Report ---
EXAM: CT abd pelvis wo con CLINICAL HISTORY: hematuria, abd pain TECHNIQUE: Contiguous axial images were obtained from the level of the diaphragm to the pubic symphysis without intravenous or oral contrast. Coronal and sagittal reconstructions were likewise performed and indicated to increase the sensitivity for detecting clinically relevant pathology. CT scan was performed according to ALARA (as low as reasonable achievable). 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 Evaluation of the abdominal and pelvic visceral organs is limited without intravenous contrast. The unenhanced liver, spleen, and adrenal glands are grossly unremarkable. Approximately 8.2 x 13.6 cm size thin walled cystic lesion is noted along the greater curvature of stomach between the gastropancreatic space which abuts the tail of pancreas Few tiny calcifications are noted in the tail of pancreas - sequelae of chronic pancreatitis appears likely Rest of pancreas appears normal. The gallbladder is present. The kidneys are normal in size and attenuation without obvious calcification. There is no hydronephrosis or perinephric stranding. Few simple cortical cyst are noted in both kidneys Bilateral kidneys and ureter shows contrast excretion within, likely due to prior contrast study - limit the evaluation of calculi. The ureters are normal in caliber. No adenopathy or fluid collections are seen. No evidence of focal or diffuse bowel wall thickening or evidence of bowel obstruction is seen. No inflamed appendix is visualized in the right lower quadrant. The aorta is normal in caliber. The urinary bladder is normal in contour. Prostate appears enlarged in size measures about 89 x 66 mm Multiple small uncomplicated sigmoid colonic diverticulosis No aggressive appearing osseous lesions are identified. IMPRESSION: 1. Approximately 8.2 x 13.6 cm size thin walled cystic lesion is noted along the greater curvature of stomach between the gastropancreatic space which abuts the tail of pancreas- possibility of pseudopancreatic cyst- clinical correlation suggested.-new finding. 2. Few calcifications are noted in the tail of pancreas- sequelae of chronic pancreatitis appears likely-new finding. 3. Enlarged prostate-stable. 4. Multiple small uncomplicated sigmoid colonic diverticulosis-stable. 5. Bilateral kidneys and ureter shows contrast excretion within, likely due to prior contrast study - limit the evaluation of calculi. Electronically signed by Anjel Edge 12-02-2024 07:12 AM
[2024-12-02] MEDS ORDERED: PNEUMOCOCCAL VACCINE (PCV20) 20-VAL CONJ-DIP CRM/PF 0.5 ML SYR IM ONE (07:19)
[2024-12-02 07:42] LABS: Appearance Urine Clear (Clear); Bacteria Urine Automated 3+ (None Seen); Epithelial Cell Urine Auto 0-2 /hpf (0-2); Glucose Urine UA Negative (Negative); WBC Urine Automated >50 /hpf (0-5)
[2024-12-02 07:45] LABS: Hematocrit (blood only) 39.2 % (42.0-52.0); Hemoglobin 13.2 g/dl (14.0-18.0)
[2024-12-02] MEDS: ASPIRIN 81 MG ECTAB PO SCH (07:52)
[2024-12-02] MEDS: CLOPIDOGREL BISULFATE 75 MG TAB PO SCH (07:52)
[2024-12-02] MEDS: PRAVASTATIN SOD 20 MG TAB PO SCH (07:53)
[2024-12-02] MEDS: FENOFIBRATE NANOCRYSTALLIZED 145 MG TABLET PO SCH (07:53)
[2024-12-02] MEDS: ACYCLOVIR 400 MG TAB PO SCH (07:53)
[2024-12-02] MEDS: TAMSULOSIN HCL 0.4 MG CAP PO SCH (07:53)
[2024-12-02 08:46] LABS: Lipase 41.0 U/L (11-82)
[2024-12-02] MEDS ORDERED: METOPROLOL TARTRATE 25 MG TAB PO SCH (09:00)
--- NOTE | 2024-12-02 10:14 | Magnetic Resonance Report ---
EXAM: MR brain wo con CLINICAL HISTORY: ? CVA TECHNIQUE: MRI of the brain was performed without contrast with multiplanar sequences obtained. COMPARISON: Comparison is made with prior CT dated 12/02/2024. FINDINGS: Brain Parenchyma: Age related involutional changes. Small vessel ischemic changes in white matter of bilateral cerebral hemispheres showing punctate and nodular T2/FLAIR hyperintense foci. No evidence of acute infarction or hemorrhage. Normal orozco-white matter differentiation. Ventricles and Sulci: Prominent lateral ventricles, third ventricle, and fourth ventricle. Sylvian fissures, sulci, and cisterns are prominent. Posterior Fossa: Cerebellum and brainstem appear normal without evidence of mass lesions or signal abnormalities. Cranial Nerves: Normal course and appearance of cranial nerves identified. Vessels: No evidence of vascular malformations or aneurysms. Intracranial arteries and veins appear normal without evidence of stenosis or occlusion. Orbits and Skull Base: Orbits and skull base structures are normal without evidence of abnormalities. Mild mucosal thickening in bilateral maxillary sinuses. IMPRESSION: 1. No acute intracranial abnormality identified. 2. Age-related involutional changes, stable. 3. Small vessel ischemic changes in white matter of bilateral cerebral hemispheres, stable. Electronically signed by Sergio Lyman 12-02-2024 10:13 AM
--- NOTE | 2024-12-02 10:54 | Gastrointestinal Consultation ---
Date of Consultation December 02, 2024 Assessment & Plan (1) Pancreatic pseudocyst: He has a pancreatic pseudocyst but has no reason to have it that we are aware of. He had a normal CT of the pancreas in 2022 which is the last imaging study of the abdomen we have. I don't know if this has been seen on CT at other facilities but he has never been told he has anything like this. He is due to have CABG done or at least consultation for CABG as he has three significant lesions on cath. He also needs this pseudocyst evaluated and plan of treatment laid out. Without risk for pseudocyst there is concern for malignancy as the cause. Also the reading from the radiologist is not definitive for this arising from the pancreas but that is the most likely diagnosis with cyst in this area. He needs to coordinate visit with CT surgeon along with visit with therapeutic endoscopist if this can be arranged. Needing CABG would possibly preclude endoscopic assessment but large pseudocyst might cause issues with proceeding to CABG. History of Present Illness Reason for Consultation: pancreatic pseudocyst Attending Physician: Eduin Phillips MD History of Present Illness 68 year old man admitted to the hospital with stroke like symptoms of slurred speech and weak right leg. He had a CT of the abdomen done in the ED for some r velvet and was found to have a 13 cm pancreatic pseudocyst--or cystic lesion abutting the stomach and tail of the pancreas. Patient has never had this before that he is aware of. he denies every having pancreatitis and he denies trauma to his abdomen. He did have a cardiac catheterization earlier this week and is scheduled for consultation with CT surgery on Wednesday in [place]. He says he has "a little pain" in his stomach but nothing that worries him. He sees "blood on his shorts" on occasion but none in his bowel movements. His last colonoscopy was "too long ago". Allergies Allergy/AdvReac Type Severity Reaction Status Date / Time No Known Allergies Allergy Verified 12/02/24 04:13 Home Medications Medication Instructions Recorded Confirmed Type amlodipine 5 mg tablet 5 mg PO DAILY #30 tabs 04/11/19 12/02/24 Rx aspirin 81 mg tablet,delayed 81 mg PO DAILY #30 tabs 04/11/19 12/02/24 Rx release clopidogrel 75 mg tablet 75 mg PO DAILY #30 tabs 04/11/19 12/02/24 Rx fenofibrate micronized 200 mg 200 mg PO DAILY #30 caps 04/11/19 12/02/24 Rx capsule insulin aspart U-100 100 unit/mL 32 units (0.32 mL) subcut TID #10 04/11/19 12/02/24 Rx subcutaneous solution (Novolog mL U-100 Insulin aspart) levothyroxine 200 mcg tablet 200 mcg PO DAILY #30 tabs 04/11/19 12/02/24 Rx metformin 1,000 mg tablet 1,000 mg PO BID #60 tabs 04/11/19 12/02/24 Rx pravastatin 20 mg tablet 20 mg PO DAILY #90 tabs 07/31/19 12/02/24 Rx tamsulosin 0.4 mg capsule 0.4 mg PO DAILY #90 caps 11/18/23 12/02/24 Rx acyclovir 400 mg tablet 400 mg PO BID 12/02/24 12/02/24 History carvedilol 25 mg tablet (Coreg) 25 mg PO AMPM 12/02/24 12/02/24 History coenzyme Q10 200 mg capsule 200 mg PO QAM 12/02/24 12/02/24 History diclofenac sodium 75 mg 75 mg PO BID 12/02/24 12/02/24 History tablet,delayed release evolocumab 140 mg/mL subcutaneous 140 mg subcut USEASDIRECTD 12/02/24 12/02/24 History pen injector (Theodore Buttick) insulin aspart U-100 100 unit/mL 32 unit subcut TID 12/02/24 12/02/24 History (3 mL) subcutaneous pen (Novolog FlexPen U-100 Insulin aspart) insulin glargine 100 unit/mL (3 110 unit subcut HS 12/02/24 12/02/24 History mL) subcutaneous pen (Lantus Solostar U-100 Insulin) isosorbide mononitrate 30 mg 30 mg PO QAM 12/02/24 12/02/24 History tablet,extended release 24 hr omega [id number] oil 1,000 mg 1 cap PO DAILY 12/02/24 12/02/24 History (120 mg-180 mg) capsule (Fish Oil) valsartan 160 1 tab PO QAM 12/02/24 12/02/24 History mg-hydrochlorothiazide 25 mg tablet (Diovan HCT) Patient History Social History Smoking Status: Former smoker Tobacco Type: Smokeless Tobacco (Dip or Chew) Second Hand Exposure: No; Do You Dip or Chew Tobacco: Yes; Hx Alcohol Use: No Hx Substance Use: No Preferred Language: Scottish Beliefs That Will Affect Care: None Current Living Situation Comment: significant other Other Information That Helps Us Care for You: No Feels Safe at Home: Yes and No Is there a partner from a previous relationship who is making you feel unsafe now?: No Any Concerns about Your Family Situation: No Would You Like to Speak to Someone About Your Situation: No Safety Concerns: Feels Safe At This Time Assistive Devices: None Physical Exam Physical Exam: Pleasant man in no distress Constitutional: WD/WN, vitals as above Neck: trachea midline, no thyromegaly Respiratory: normal respiratory effort, lungs clear to auscultation Cardiovascular: RRR, no murmur, no edema Gastrointestinal (Abdomen): normal bowel sounds, soft, nontender, no hepatosplenomegaly Results & Data Vital Signs (Past 12 Hours) Vital Signs Temp Pulse Pulse Resp BP BP Pulse Ox 12/02/24 08:09 36.6 C 59 L 18 131/80 93 12/02/24 06:00 36.4 C L 57 L 20 152/90 H 95 12/02/24 05:42 62 12/02/24 05:04 36.6 C 12/02/24 05:00 62 22 140/81 96 12/02/24 04:30 60 14 142/82 H 96 12/02/24 04:06 62 19 147/99 H 96 12/02/24 03:48 70 15 96 12/02/24 03:30 76 16 150/87 H 94 12/02/24 03:12 70 15 193/103 H 96 12/02/24 02:48 68 19 96 12/02/24 02:41 69 12/02/24 02:29 36.4 C L 68 18 160/89 H 95 O2 Del Method 12/02/24 08:09 Room Air 12/02/24 06:00 Room Air 12/02/24 05:42 12/02/24 05:04 12/02/24 05:00 Room Air 12/02/24 04:30 Room Air 12/02/24 04:06 Room Air 12/02/24 03:48 Room Air 12/02/24 03:30 Room Air 12/02/24 03:12 Room Air 12/02/24 02:48 Room Air 12/02/24 02:41 12/02/24 02:29 Room Air Laboratory Results 12/02/24 12/02/24 12/02/24 Range/Units 06:03 06:00 05:53 WBC (4.8-10.8) K/ul RBC (4.70-6.10) M/uL Hgb 13.2 L (14.0-18.0) g/dl POC Hgb (14.0-18.0) g/dl Hct 39.2 L (42.0-52.0) % POC Hct (42-52) % MCV (80.0-100.0) fL MCH (25.0-34.0) pg MCHC (32.0-36.0) g/dL RDW Std Deviation (36.4-46.3) fL RDW Coeff of Nikolay (11.5-14.5) % Plt Count (130-400) K/uL MPV (9.4-12.4) fL Immature Gran % (Auto) % Neut % (Auto) % Lymph % (Auto) % [place] % (Auto) % Eos % (Auto) % Baso % (Auto) % Neut # (Auto) (1.40-6.50) K/uL Lymph # (Auto) (1.20-3.40) K/uL [place] # (Auto) (0.11-0.59) K/uL Eos # (Auto) (0.00-0.50) K/uL Baso # (Auto) (0.00-0.20) K/uL Immature Gran # (Auto) (0.01-0.20) K/uL PT (9.0-12.0) Seconds INR (0.9-1.1) APTT (21-31) Seconds PTT Ratio POC Sodium (135-144) mmol/L Sodium (136-145) mmol/L POC Potassium (3.3-5.0) mmol/L Potassium (3.5-5.1) mmol/L POC Chloride (101-112) mmol/L Chloride (98-107) mmol/L Carbon Dioxide (21-32) mmol/L POC Total CO2 (24-31) mmol/L Anion Gap (3-11) POC Anion Gap (16-25) mmol/L POC BUN (7-18) mg/dl BUN (6-23) mg/dl Creatinine (0.6-1.4) mg/dl POC Creatinine (0.6-1.3) mg/dl Est Cr Clr Drug Dosing ml/min eGFR BUN/Creatinine Ratio (10-20) Glucose (70-99(Fasting)) mg/dl POC Glucose 114 H (70-99) mg/dl POC Glucose (other) (70-99) mg/dl Calcium (8.6-10.3) mg/dl POC Ioniz Calcium Samuel (1.12-1.32) mmol/l Magnesium (1.7-2.4) mg/dl Total Bilirubin (0.2-1.0) mg/dl AST (13-39) U/L ALT (7-52) U/L Alkaline Phosphatase (34-104) U/L Troponin I High Sens (0-20) pg/ml Total Protein (6.0-8.3) gm/dl Albumin (3.4-5.0) gm/dl Globulin (2.5-4.0) gm/dl Albumin/Globulin Ratio (0.9-2) Lipase (11-82) U/L Urine Color Yellow Urine Appearance Clear (Clear) Urine pH 5.0 (4.5-7.5) Ur Specific [place] > 1.045 H (1.000-1.030) Urine Protein Trace H (Negative) Urine Glucose (UA) Negative (Negative) Urine Ketones Trace H (Negative) Urine Blood 2+ H (Negative) Urine Nitrite Positive A (Negative) Urine Bilirubin Negative (Negative) Urine Urobilinogen Negative (Negative) Ur Leukocyte Esterase 2+ H (Negative) Urine WBC (Auto) >50 H (0-5) /hpf Urine RBC (Auto) 3-5 H (0-2) /hpf U Hyaline Cast (Auto) 3-5 H (0-2) /lpf U Epithel Cells (Auto) 0-2 (0-2) /hpf Urine Bacteria (Auto) 3+ H (None Seen) Urine Comment Blood Type Antibody Screen 12/02/24 12/02/24 12/02/24 Range/Units 04:45 04:44 03:16 WBC (4.8-10.8) K/ul RBC (4.70-6.10) M/uL Hgb 12.3 L (14.0-18.0) g/dl POC Hgb (14.0-18.0) g/dl Hct 37.8 L (42.0-52.0) % POC Hct (42-52) % MCV (80.0-100.0) fL MCH (25.0-34.0) pg MCHC (32.0-36.0) g/dL RDW Std Deviation (36.4-46.3) fL RDW Coeff of Nikolay (11.5-14.5) % Plt Count (130-400) K/uL MPV (9.4-12.4) fL Immature Gran % (Auto) % Neut % (Auto) % Lymph % (Auto) % [place] % (Auto) % Eos % (Auto) % Baso % (Auto) % Neut # (Auto) (1.40-6.50) K/uL Lymph # (Auto) (1.20-3.40) K/uL [place] # (Auto) (0.11-0.59) K/uL Eos # (Auto) (0.00-0.50) K/uL Baso # (Auto) (0.00-0.20) K/uL Immature Gran # (Auto) (0.01-0.20) K/uL PT (9.0-12.0) Seconds INR (0.9-1.1) APTT (21-31) Seconds PTT Ratio POC Sodium (135-144) mmol/L Sodium (136-145) mmol/L POC Potassium (3.3-5.0) mmol/L Potassium (3.5-5.1) mmol/L POC Chloride (101-112) mmol/L Chloride (98-107) mmol/L Carbon Dioxide (21-32) mmol/L POC Total CO2 (24-31) mmol/L Anion Gap (3-11) POC Anion Gap (16-25) mmol/L POC BUN (7-18) mg/dl BUN (6-23) mg/dl Creatinine (0.6-1.4) mg/dl POC Creatinine (0.6-1.3) mg/dl Est Cr Clr Drug Dosing ml/min eGFR BUN/Creatinine Ratio (10-20) Glucose (70-99(Fasting)) mg/dl POC Glucose (70-99) mg/dl POC Glucose (other) (70-99) mg/dl Calcium (8.6-10.3) mg/dl POC Ioniz Calcium Samuel (1.12-1.32) mmol/l Magnesium (1.7-2.4) mg/dl Total Bilirubin (0.2-1.0) mg/dl AST (13-39) U/L ALT (7-52) U/L Alkaline Phosphatase (34-104) U/L Troponin I High Sens 21.0 H (0-20) pg/ml Total Protein (6.0-8.3) gm/dl Albumin (3.4-5.0) gm/dl Globulin (2.5-4.0) gm/dl Albumin/Globulin Ratio (0.9-2) Lipase 41 (11-82) U/L Urine Color Urine Appearance (Clear) Urine pH (4.5-7.5) Ur Specific [place] (1.000-1.030) Urine Protein (Negative) Urine Glucose (UA) (Negative) Urine Ketones (Negative) Urine Blood (Negative) Urine Nitrite (Negative) Urine Bilirubin (Negative) Urine Urobilinogen (Negative) Ur Leukocyte Esterase (Negative) Urine WBC (Auto) (0-5) /hpf Urine RBC (Auto) (0-2) /hpf U Hyaline Cast (Auto) (0-2) /lpf U Epithel Cells (Auto) (0-2) /hpf Urine Bacteria (Auto) (None Seen) Urine Comment Blood Type A Positive Antibody Screen NEGATIVE 12/02/24 12/02/24 12/02/24 Range/Units 02:50 02:44 02:40 WBC 6.39 (4.8-10.8) K/ul RBC 4.96 (4.70-6.10) M/uL Hgb 14.0 (14.0-18.0) g/dl POC Hgb 14.3 (14.0-18.0) g/dl Hct 43.0 (42.0-52.0) % POC Hct 42 (42-52) % MCV 86.7 (80.0-100.0) fL MCH 28.2 (25.0-34.0) pg MCHC 32.6 (32.0-36.0) g/dL RDW Std Deviation 43.2 (36.4-46.3) fL RDW Coeff of Nikolay 13.7 (11.5-14.5) % Plt Count 191 (130-400) K/uL MPV 11.7 (9.4-12.4) fL Immature Gran % (Auto) 0.5 % Neut % (Auto) 53.3 % Lymph % (Auto) 27.5 % [place] % (Auto) 13.1 % Eos % (Auto) 4.2 % Baso % (Auto) 1.4 % Neut # (Auto) 3.40 (1.40-6.50) K/uL Lymph # (Auto) 1.76 (1.20-3.40) K/uL [place] # (Auto) 0.84 H (0.11-0.59) K/uL Eos # (Auto) 0.27 (0.00-0.50) K/uL Baso # (Auto) 0.09 (0.00-0.20) K/uL Immature Gran # (Auto) 0.03 (0.01-0.20) K/uL PT 11.2 (9.0-12.0) Seconds INR 1.0 (0.9-1.1) APTT 27 (21-31) Seconds PTT Ratio 1.0 POC Sodium 143 (135-144) mmol/L Sodium 142 (136-145) mmol/L POC Potassium 4.0 (3.3-5.0) mmol/L Potassium 4.0 (3.5-5.1) mmol/L POC Chloride 106 (101-112) mmol/L Chloride 107 (98-107) mmol/L Carbon Dioxide 27 (21-32) mmol/L POC Total CO2 25 (24-31) mmol/L Anion Gap 8 (3-11) POC Anion Gap 18.0 (16-25) mmol/L POC BUN 30 H (7-18) mg/dl BUN 29 H (6-23) mg/dl Creatinine 1.71 H (0.6-1.4) mg/dl POC Creatinine 1.8 H (0.6-1.3) mg/dl Est Cr Clr Drug Dosing 57.9 ml/min eGFR 43.33 BUN/Creatinine Ratio 17.0 (10-20) Glucose 119 H (70-99(Fasting)) mg/dl POC Glucose 115 H (70-99) mg/dl POC Glucose (other) 118 H (70-99) mg/dl Calcium 10.1 (8.6-10.3) mg/dl POC Ioniz Calcium Samuel 1.22 (1.12-1.32) mmol/l Magnesium 1.8 (1.7-2.4) mg/dl Total Bilirubin 0.4 (0.2-1.0) mg/dl AST 19 (13-39) U/L ALT 15 (7-52) U/L Alkaline Phosphatase 46 (34-104) U/L Troponin I High Sens 21.5 H (0-20) pg/ml Total Protein 7.7 (6.0-8.3) gm/dl Albumin 4.3 (3.4-5.0) gm/dl Globulin 3.4 (2.5-4.0) gm/dl Albumin/Globulin Ratio 1.3 (0.9-2) Lipase (11-82) U/L Urine Color Urine Appearance (Clear) Urine pH (4.5-7.5) Ur Specific [place] (1.000-1.030) Urine Protein (Negative) Urine Glucose (UA) (Negative) Urine Ketones (Negative) Urine Blood (Negative) Urine Nitrite (Negative) Urine Bilirubin (Negative) Urine Urobilinogen (Negative) Ur Leukocyte Esterase (Negative) Urine WBC (Auto) (0-5) /hpf Urine RBC (Auto) (0-2) /hpf U Hyaline Cast (Auto) (0-2) /lpf U Epithel Cells (Auto) (0-2) /hpf Urine Bacteria (Auto) (None Seen) Urine Comment Blood Type Antibody Screen Diagnostic Findings Head CT 12/02/24 02:41 EXAM: CT head/brain wo con CLINICAL HISTORY: neuro deficit, acute stroke suspected, R arm/leg TECHNIQUE: Multiple axial images are obtained from the skull base to the vertex without contrast. CT scan was performed according to ALARA (as low as reasonable achievable). COMPARISON: None. FINDINGS: There is cerebral atrophy. No evidence of space occupying lesion, hemorrhage, edema, mass effect, midline shift, extra axial collection, or hydrocephalus is noted. Basal cisterns are symmetric and normal in size and configuration. There are scattered periventricular hypodensities as can be seen with chronic microvascular ischemic changes. The orozco-white matter differentiation is preserved. Bilateral maxillary sinusitis. Rest of paranasal sinuses and mastoid air cells are well aerated. Orbital contents are within normal limits. Bony structures are intact. IMPRESSION: 1. No evidence of acute intracranial abnormality is demonstrated. 2. Chronic microvascular ischemic changes. 3. Cerebral atrophy. 4. CT scan is negative for large territorial ischemic / hemorrhagic stroke. 5. Non contrast CT can be negative in the setting of hyperacute infarct/small ischemic infarct and further evaluation with diffusion weighted MRI is recommended as clinically appropriate. Electronically signed by Anjel Edge 12-02-2024 03:36 AM Head CTA 12/02/24 02:41 EXAM: CT angio head w con CLINICAL HISTORY: neuro deficit, acute stroke suspected, R arm/leg TECHNIQUE: Contrast enhanced thin slice CT angiography scan of the cerebral vessels was performed with intravenous contrast. Angiographic images were processed, 3D MIP images were acquired for interpretation. Contiguous axial images were obtained. Reformatted coronal and sagittal images were also reviewed. If IV contrast material had not been administered, the likelihood of detecting abnormalities relevant to the patients condition would have been substantially decreased. CT scan was performed according to ALARA (as low as reasonable achievable). COMPARISON: none FINDINGS: Diffuse atheroscleotic changes with eccentric calcifications involving C5-C7 segments of bilateral internal carotid areteries with no significant stenosis Rest of the bilateral internal carotid arteries show normal course, calibre and opacification. Their division into the anterior cerebral artery and middle cerebral artery is defined. 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 M1, M2 segments are normal on both the sides. Bilateral vertebral arteries are seen to unite the form the basilar artery in a normal fashion. Non dominant right vertebral artery Basilar artery shows normal course, caliber and opacification. Its division into the posterior cerebral arteries is defined. Bilateral P1 and P2 segments are normal. Visualized venous structures show normal opacification. No evidence of intracranial aneurysm or AV malformation is seen. IMPRESSION: 1. No evidence of aneurysm. No evidence of dissection. 2. 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 Diffuse atheroscleotic changes with eccentric calcifications involving C5-C7 segments of bilateral internal carotid areteries with no significant stenosis 4. Non dominant right vertebral artery Electronically signed by Anjel Edge 12-02-2024 03:59 AM Neck CTA 12/02/24 02:41 EXAM: CT angio neck with con CLINICAL HISTORY: neuro deficit, acute stroke suspected, R arm/leg TECHNIQUE: Contrast enhanced thin slice CT angiography scan of the carotid vessels was performed with intravenous contrast. Angiographic images were processed, 3D MIP images were acquired for interpretation.Contiguous axial images were obtained. Reformatted coronal and sagittal images were also reviewed. If IV contrast material had not been administered, the likelihood of detecting abnormalities relevant to the patients condition would have been substantially decreased. CT scan was performed according to ALARA (as low as reasonable achievable). COMPARISON: None. FINDINGS: Atherosclerotic calcifications are noted involving bilateral carotid bulb without significant stenosis. Included great vessels of the aortic arch are grossly unremarkable. Common carotid artery, carotid Bulb, internal carotid artery , and origin of the external carotid artery are well opacified. Vertebral arteries are well opacified. Jugular veins are well opacified. Included lung apices are grossly unremarkable. Thyroid gland appears unremarkable. IMPRESSION: No evidence of stenosis or aneurysm. No evidence of dissection. Atherosclerotic calcifications are noted involving bilateral carotid bulb without significant stenosis. Electronically signed by Anjel Edge 12-02-2024 03:48 AM Brain MRI 12/02/24 04:08 EXAM: MR brain wo con CLINICAL HISTORY: ? CVA TECHNIQUE: MRI of the brain was performed without contrast with multiplanar sequences obtained. COMPARISON: Comparison is made with prior CT dated 12/02/2024. FINDINGS: Brain Parenchyma: Age related involutional changes. Small vessel ischemic changes in white matter of bilateral cerebral hemispheres showing punctate and nodular T2/FLAIR hyperintense foci. No evidence of acute infarction or hemorrhage. Normal orozco-white matter differentiation. Ventricles and Sulci: Prominent lateral ventricles, third ventricle, and fourth ventricle. Sylvian fissures, sulci, and cisterns are prominent. Posterior Fossa: Cerebellum and brainstem appear normal without evidence of mass lesions or signal abnormalities. Cranial Nerves: Normal course and appearance of cranial nerves identified. Vessels: No evidence of vascular malformations or aneurysms. Intracranial arteries and veins appear normal without evidence of stenosis or occlusion. Orbits and Skull Base: Orbits and skull base structures are normal without evidence of abnormalities. Mild mucosal thickening in bilateral maxillary sinuses. IMPRESSION: 1. No acute intracranial abnormality identified. 2. Age-related involutional changes, stable. 3. Small vessel ischemic changes in white matter of bilateral cerebral hemispheres, stable. Electronically signed by Sergio Lyman 12-02-2024 10:13 AM Chest X-Ray 12/02/24 04:17 EXAM: XR chest 1V portable CLINICAL HISTORY: ARF. TECHNIQUE: An X-ray image of the chest is obtained in AP projection. COMPARISON: No prior studies are available for comparison. FINDINGS: Pulmonary Parenchyma: No evidence of consolidation, collapse, or focal opacities. No pulmonary nodules are identified. No evidence of pleural effusion or pleural thickening. Heart and Mediastinum: Heart size and shape are normal. No mediastinal widening or masses. No hilar or mediastinal lymphadenopathy. Bony Thorax: Bony thorax appears intact without fractures or deformities. Soft Tissues: Soft tissues overlying the chest wall are unremarkable. IMPRESSION: No acute cardiopulmonary pathology. Electronically signed by Sergio Lyman 12-02-2024 05:56 AM Abdomen/Pelvis CT 12/02/24 05:02 EXAM: CT abd pelvis wo con CLINICAL HISTORY: hematuria, abd pain TECHNIQUE: Contiguous axial images were obtained from the level of the diaphragm to the pubic symphysis without intravenous or oral contrast. Coronal and sagittal reconstructions were likewise performed and indicated to increase the sensitivity for detecting clinically relevant pathology. CT scan was performed according to ALARA (as low as reasonable achievable). COMPARISON: December 15/2023 07:18:20 [employer] FINDINGS: The visualized lung bases are clear. Evaluation of the abdominal and pelvic visceral organs is limited without intravenous contrast. The unenhanced liver, spleen, and adrenal glands are grossly unremarkable. Approximately 8.2 x 13.6 cm size thin walled cystic lesion is noted along the greater curvature of stomach between the gastropancreatic space which abuts the tail of pancreas Few tiny calcifications are noted in the tail of pancreas - sequelae of chronic pancreatitis appears likely Rest of pancreas appears normal. The gallbladder is present. The kidneys are normal in size and attenuation without obvious calcification. There is no hydronephrosis or perinephric stranding. Few simple cortical cyst are noted in both kidneys Bilateral kidneys and ureter shows contrast excretion within, likely due to prior contrast study - limit the evaluation of calculi. The ureters are normal in caliber. No adenopathy or fluid collections are seen. No evidence of focal or diffuse bowel wall thickening or evidence of bowel obstruction is seen. No inflamed appendix is visualized in the right lower quadrant. The aorta is normal in caliber. The urinary bladder is normal in contour. Prostate appears enlarged in size measures about 89 x 66 mm Multiple small uncomplicated sigmoid colonic diverticulosis No aggressive appearing osseous lesions are identified. IMPRESSION: 1. Approximately 8.2 x 13.6 cm size thin walled cystic lesion is noted along the greater curvature of stomach between the gastropancreatic space which abuts the tail of pancreas- possibility of pseudopancreatic cyst- clinical correlation suggested.-new finding. 2. Few calcifications are noted in the tail of pancreas- sequelae of chronic pancreatitis appears likely-new finding. 3. Enlarged prostate-stable. 4. Multiple small uncomplicated sigmoid colonic diverticulosis-stable. 5. Bilateral kidneys and ureter shows contrast excretion within, likely due to prior contrast study - limit the evaluation of calculi. Electronically signed by Anjel Edge 12-02-2024 07:12 AM
--- NOTE | 2024-12-02 12:03 | Communication Note ---
Date of Service: December 02, 2024 68 yo M w/ PMH of CAD s/p stent (ACS s/p RCA stent in 2014), hypertension, hyperlipidemia, CRI (baseline creatinine 1.4), DM 2 insulin requiring, hypothyroidism, BPH, urolithiasis, GERD, HSV on chronic suppression Rx, past tobacco abuse presents to ED 12/02 c/i w/ c/o right sided weakness/numbness with a sensation of imbalance x 1 day. No headache or dizziness. He also reports blood in undergarments and lower abd pain 2 days ago [employer]. Denied fever/chills. Denies unusual chest pain/SOB on exertion. Patient underwent outpatient diagnostic cardiac catheterization at [facility] 3 days ago because of abnormal stress test. Hemodynamically significant CAD on cath. Left main with mild disease. Mid LAD with 90% stenosis followed by diffuse disease. 60% OM2 occlusion. D RCA 100% chronic total occlusion. Severe RPDA disease as per report. Outpatient [facility] CT surgery referral for possible CABG scheduled for next week. 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 TIA (transient ischemic attack): Patient presents with right sided weakness of the extremities and right hand numbness/tingling. CT head, CTA of head and neck reviewed. MRI brain with small vessel ischemic changes in white matter of bilateral cerebral hemisphere, stable. Start DAPT, send echo, await A1c and lipid profile. Neurology consult placed Patient reports improvement in his right extremity weakness and right hand numbness tingling. Continue with neurochecks and telemetry monitoring. Continue with PT/OT. Hypertension: History of, initially elevated at presentation in the setting of TIA, now better. Continue with home medications from [facility], permissive HTN for now. Abnormal CTAP/possible pancreatic pseudocyst: Admitting CTAP suggestive of 8.2 x 13.6 cm cystic lesion along the greater curvature of stomach between gastropancreatic space with about the tail of pancreas. Findings concerning for chronic pancreatitis noted. Lipase WNL. GI evaluated, recommends outpatient therapeutic endoscopist eval. Patient with no nausea/vomiting/upper abdominal pain. He is moving bowels okay. Denies unintentional weight loss. Hematuria/complicated UTI: start rocephin 12/02, await urine cx. ARF on CKD: baseline Cr around 1.4, admitting Cr of 2.18. Cr improving, will change LR to NSS due to being on iv rocephin. Monitor creatinine response to IVF, hold home diuretic/ARB/NSAID until creatinine back to baseline Demand ischemia: Troponin flat trend around 20, patient with no chest pain. Demand ischemia in the setting of acute illness. Continue telemetry monitoring. f/u echo. Other chronic medical conditions: Continue with/resume home meds as and when able. hx CAD status post stent, multivessel CAD on recent diagnostic cardiac catheterization, patient scheduled to see [facility] CT surgeon for evaluation for CABG next week hyperlipidemia, on statin Rx DM 2 insulin requiring, suboptimal control as of recent hemoglobin A1c of 7.6 last July 2024 hypothyroidism, euthyroid as above recent outpatient TSH past tobacco abuse DVT prophylaxis. SCDs re: hematuria Full code Patient partner Ms. Briseida Rich, contact #[phone]. For detailed information on the patient, refer to today's H&P note. Text document was generated using [employer] voice recognition software. It may contain grammatical or spelling errors. Kindly contact undersigned for clarification of any documentation item in question.
[2024-12-02] MEDS: SODIUM CHLORIDE 0.9% 1,000 ML IV SCH (12:21)
[2024-12-02] MEDS: cefTRIAXone SODIUM 2,000 MG/50 ML BAG IV SCH (12:21)
--- NOTE | 2024-12-02 13:26 | Neurology Consultation ---
Date of Consultation December 02, 2024 Assessment & Plan (1) Stroke-like symptoms: Recommend continued stroke work up to include the following: Echocardiogram as part of complete stroke workup Continue frequent neurological assessments Obtain stat CT brain without contrast for any acute neurological decline Continue to monitor/control blood pressure & blood glucose Continue to monitor telemetry closely Recommend ZioPatch at DC if no evidence of arrhythmia during inpatient monitoring Continue to monitor renal and hepatic function, keep euvolemic Metabolic workup should include hgbA1c, fasting lipids Recommend continued DAPT as tolerated Recommend increased pravastatin dose to 40mg if tolerated Ok from neurology perspective for VTE prophylaxis PT/OT/SLT to eval and treat Recommend eval for PHAN and consider outpatient polysomnography Telehealth Consultation Telehealth Information Telehealth Information: I performed this visit using a real-time telehealth connection between my location and the patients location ([facility]). After connecting through interactive tele-video, patient was identified by name and date of and/or wristband check.Patient (or authorized healthcare plastic products sales representative) was informed that this was a telemedicine visit and it was being conducted confidentially over secure lines. My office door was closed and no one else was present in the room with me.Patient (or authorized healthcare plastic products sales representative) provided consent to proceed with the visit, expressed an understanding of privacy and security of the telemedicine visit, and gave permission to have a hospital plastic products sales representative in the room in order to assist with the visit and to conduct portions of the visit, as needed. I informed the patient (or authorized healthcare plastic products sales representative) that I reviewed their record and presented the opportunity for them to ask any questions regarding the visit today. The patient agreed to participate. History of Present Illness Reason for Consultation: Stroke like symptoms Requesting Physician: Dr Phillips Attending Physician: Eduin Phillips MD History of Present Illness 68yo right handed male with significant past medical hx of multivessel CAD planned for outpatient surgical evaluation of possible CABG, DM, hyperlipidemia, HTN, CKD presented hypertensive with right hemiparesis/hemiparesthesia. He has undergone emergent stroke imaging including CT brain without contrast, personally reviewed today, revealing no overt evidence of hemorrhage. CT angiographic studies of head and neck, also personally reviewed today, reveal no overt evidence of large vessel occlusion or significant/flow limiting stenosis. He has undergone MRI brain revealing no overt evidence of acute ischemic stroke and/or acute intracranial pathology. I have performed televideo consultation. He is alert & oriented; able to answer all questions appropriately, name objects on televideo monitor, repeat phrases and perform complex/embedded commands without deficit. Neurological exam is non lateralizing/nonfocal in terms of motor strength and coordination. He reports symptoms have resolved. He reports taking DAPT due to CAD and unfortunately he reports some lower leg cramping with statin medications as I have explained there may be need to increased pravastatin to 40mg as unfortunately he is having more symptomatic cerebrovascular disease. He was agreeable to try increased dose of medication. All questions answered he states gratitude for the care he is receiving. Allergies Allergy/AdvReac Type Severity Reaction Status Date / Time No Known Allergies Allergy Verified 12/02/24 04:13 Home Medications Medication Instructions Recorded Confirmed Type amlodipine 5 mg tablet 5 mg PO DAILY #30 tabs 04/11/19 12/02/24 Rx aspirin 81 mg tablet,delayed 81 mg PO DAILY #30 tabs 04/11/19 12/02/24 Rx release clopidogrel 75 mg tablet 75 mg PO DAILY #30 tabs 04/11/19 12/02/24 Rx fenofibrate micronized 200 mg 200 mg PO DAILY #30 caps 04/11/19 12/02/24 Rx capsule insulin aspart U-100 100 unit/mL 32 units (0.32 mL) subcut TID #10 04/11/19 12/02/24 Rx subcutaneous solution (Novolog mL U-100 Insulin aspart) levothyroxine 200 mcg tablet 200 mcg PO DAILY #30 tabs 04/11/19 12/02/24 Rx metformin 1,000 mg tablet 1,000 mg PO BID #60 tabs 04/11/19 12/02/24 Rx pravastatin 20 mg tablet 20 mg PO DAILY #90 tabs 07/31/19 12/02/24 Rx tamsulosin 0.4 mg capsule 0.4 mg PO DAILY #90 caps 11/18/23 12/02/24 Rx acyclovir 400 mg tablet 400 mg PO BID 12/02/24 12/02/24 History carvedilol 25 mg tablet (Coreg) 25 mg PO AMPM 12/02/24 12/02/24 History coenzyme Q10 200 mg capsule 200 mg PO QAM 12/02/24 12/02/24 History diclofenac sodium 75 mg 75 mg PO BID 12/02/24 12/02/24 History tablet,delayed release evolocumab 140 mg/mL subcutaneous 140 mg subcut USEASDIRECTD 12/02/24 12/02/24 H istory pen injector (Repatha SureClick) insulin aspart U-100 100 unit/mL 32 unit subcut TID 12/02/24 12/02/24 History (3 mL) subcutaneous pen (Novolog FlexPen U-100 Insulin aspart) insulin glargine 100 unit/mL (3 110 unit subcut HS 12/02/24 12/02/24 History mL) subcutaneous pen (Lantus Solostar U-100 Insulin) isosorbide mononitrate 30 mg 30 mg PO QAM 12/02/24 12/02/24 History tablet,extended release 24 hr omega 5-jfs-ogb-fish oil 1,000 mg 1 cap PO DAILY 12/02/24 12/02/24 History (120 mg-180 mg) capsule (Fish Oil) valsartan 160 1 tab PO QAM 12/02/24 12/02/24 History mg-hydrochlorothiazide 25 mg tablet (Diovan HCT) Patient History Social History Smoking Status: Former smoker Tobacco Type: Smokeless Tobacco (Dip or Chew) Second Hand Exposure: No; Do You Dip or Chew Tobacco: Yes; Hx Alcohol Use: No Hx Substance Use: No Preferred Language: Malay Beliefs That Will Affect Care: None Current Living Situation Comment: significant other Other Information That Helps Us Care for You: No Feels Safe at Home: Yes and No Is there a partner from a previous relationship who is making you feel unsafe now?: No Any Concerns about Your Family Situation: No Would You Like to Speak to Someone About Your Situation: No Safety Concerns: Feels Safe At This Time Assistive Devices: None Physical Exam Neurological Examination: Mental Status: Awake and alert. Oriented to person, place, and time. Fluency naming repetition and comprehension appear grossly intact. Affect remains appropriate. CN testing: I: Deferred II: Reports no changes in visual acuity III/IV/: No evidence of gaze preference, hippus, nystagmus or roving eye movements V: Facial sensation reportedly grossly intact to light touch bilaterally VII: Facial movements appear without evidence of asymmetry VIII: Hearing appears grossly intact to loud voice bilaterally IX/X: Palate is unable to be accurately visualized XI: Shoulder shrug appears symmetric/ grossly intact bilaterally XII: Tongue protrudes midline without evidence of biting Motor exam: Strength appears grossly intact in all extremities Tone: Unable to accurately assess via telemedicine Sensory: Sensation is reportedly grossly intact throughout Coordination: No apparent evidence of dysmetria or dysdiadochokinesia Reflexes: Unable to accurately assess via telemedicine Gait: Deferred Results & Data Vital Signs (Past 12 Hours) Vital Signs Temp Pulse Pulse Resp BP BP Pulse Ox 12/02/24 11:20 36.7 C 60 18 130/79 94 12/02/24 08:09 36.6 C 59 L 18 131/80 93 12/02/24 06:00 36.4 C L 57 L 20 152/90 H 95 12/02/24 05:42 62 12/02/24 05:04 36.6 C 12/02/24 05:00 62 22 140/81 96 12/02/24 04:30 60 14 142/82 H 96 12/02/24 04:06 62 19 147/99 H 96 12/02/24 03:48 70 15 96 12/02/24 03:30 76 16 150/87 H 94 12/02/24 03:12 70 15 193/103 H 96 12/02/24 02:48 68 19 96 12/02/24 02:41 69 12/02/24 02:29 36.4 C L 68 18 160/89 H 95 O2 Del Method 12/02/24 11:20 Room Air 12/02/24 08:09 Room Air 12/02/24 06:00 Room Air 12/02/24 05:42 12/02/24 05:04 12/02/24 05:00 Room Air 12/02/24 04:30 Room Air 12/02/24 04:06 Room Air 12/02/24 03:48 Room Air 12/02/24 03:30 Room Air 12/02/24 03:12 Room Air 12/02/24 02:48 Room Air 12/02/24 02:41 12/02/24 02:29 Room Air Laboratory Results Abnormal lab results 12/02/24 12/02/24 12/02/24 Range/Units 02:40 02:44 02:50 Hgb (14.0-18.0) g/dl Hct (42.0-52.0) % [place] # (Auto) 0.84 H (0.11-0.59) K/uL POC BUN 30 H (7-18) mg/dl BUN 29 H (6-23) mg/dl Creatinine 1.71 H (0.6-1.4) mg/dl POC Creatinine 1.8 H (0.6-1.3) mg/dl Glucose 119 H (70-99(Fasting)) mg/dl POC Glucose 115 H (70-99) mg/dl POC Glucose (other) 118 H (70-99) mg/dl Troponin I High Sens 21.5 H (0-20) pg/ml Ur Specific [place] (1.000-1.030) Urine Protein (Negative) Urine Ketones (Negative) Urine Blood (Negative) Urine Nitrite (Negative) Ur Leukocyte Esterase (Negative) Urine WBC (Auto) (0-5) /hpf Urine RBC (Auto) (0-2) /hpf U Hyaline Cast (Auto) (0-2) /lpf Urine Bacteria (Auto) (None Seen) 12/02/24 12/02/24 12/02/24 Range/Units 04:44 04:45 05:53 Hgb 12.3 L 13.2 L (14.0-18.0) g/dl Hct 37.8 L 39.2 L (42.0-52.0) % [place] # (Auto) (0.11-0.59) K/uL POC BUN (7-18) mg/dl BUN (6-23) mg/dl Creatinine (0.6-1.4) mg/dl POC Creatinine (0.6-1.3) mg/dl Glucose (70-99(Fasting)) mg/dl POC Glucose (70-99) mg/dl POC Glucose (other) (70-99) mg/dl Troponin I High Sens 21.0 H (0-20) pg/ml Ur Specific [place] (1.000-1.030) Urine Protein (Negative) Urine Ketones (Negative) Urine Blood (Negative) Urine Nitrite (Negative) Ur Leukocyte Esterase (Negative) Urine WBC (Auto) (0-5) /hpf Urine RBC (Auto) (0-2) /hpf U Hyaline Cast (Auto) (0-2) /lpf Urine Bacteria (Auto) (None Seen) 12/02/24 12/02/24 12/02/24 Range/Units 06:00 06:03 12:35 Hgb (14.0-18.0) g/dl Hct (42.0-52.0) % [place] # (Auto) (0.11-0.59) K/uL POC BUN (7-18) mg/dl BUN (6-23) mg/dl Creatinine (0.6-1.4) mg/dl POC Creatinine (0.6-1.3) mg/dl Glucose (70-99(Fasting)) mg/dl POC Glucose 114 H 125 H (70-99) mg/dl POC Glucose (other) (70-99) mg/dl Troponin I High Sens (0-20) pg/ml Ur Specific [place] > 1.045 H (1.000-1.030) Urine Protein Trace H (Negative) Urine Ketones Trace H (Negative) Urine Blood 2+ H (Negative) Urine Nitrite Positive A (Negative) Ur Leukocyte Esterase 2+ H (Negative) Urine WBC (Auto) >50 H (0-5) /hpf Urine RBC (Auto) 3-5 H (0-2) /hpf U Hyaline Cast (Auto) 3-5 H (0-2) /lpf Urine Bacteria (Auto) 3+ H (None Seen) Diagnostic Findings Head CT 12/02/24 02:41 EXAM: CT head/brain wo con CLINICAL HISTORY: neuro deficit, acute stroke suspected, R arm/leg TECHNIQUE: Multiple axial images are obtained from the skull base to the vertex without contrast. CT scan was performed according to ALARA (as low as reasonable achievable). COMPARISON: None. FINDINGS: There is cerebral atrophy. No evidence of space occupying lesion, hemorrhage, edema, mass effect, midline shift, extra axial collection, or hydrocephalus is noted. Basal cisterns are symmetric and normal in size and configuration. There are scattered periventricular hypodensities as can be seen with chronic microvascular ischemic changes. The orozco-white matter differentiation is preserved. Bilateral maxillary sinusitis. Rest of paranasal sinuses and mastoid air cells are well aerated. Orbital contents are within normal limits. Bony structures are intact. IMPRESSION: 1. No evidence of acute intracranial abnormality is demonstrated. 2. Chronic microvascular ischemic changes. 3. Cerebral atrophy. 4. CT scan is negative for large territorial ischemic / hemorrhagic stroke. 5. Non contrast CT can be negative in the setting of hyperacute infarct/small ischemic infarct and further evaluation with diffusion weighted MRI is recommended as clinically appropriate. Electronically signed by Anjel Edge 12-02-2024 03:36 AM Head CTA 12/02/24 02:41 EXAM: CT angio head w con CLINICAL HISTORY: neuro deficit, acute stroke suspected, R arm/leg TECHNIQUE: Contrast enhanced thin slice CT angiography scan of the cerebral vessels was performed with intravenous contrast. Angiographic images were processed, 3D MIP images were acquired for interpretation. Contiguous axial images were obtained. Reformatted coronal and sagittal images were also reviewed. If IV contrast material had not been administered, the likelihood of detecting abnormalities relevant to the patients condition would have been substantially decreased. CT scan was performed according to ALARA (as low as reasonable achievable). COMPARISON: none FINDINGS: Diffuse atheroscleotic changes with eccentric calcifications involving C5-C7 segments of bilateral internal carotid areteries with no significant stenosis Rest of the bilateral internal carotid arteries show normal course, calibre and opacification. Their division into the anterior cerebral artery and middle cerebral artery is defined. 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 M1, M2 segments are normal on both the sides. Bilateral vertebral arteries are seen to unite the form the basilar artery in a normal fashion. Non dominant right vertebral artery Basilar artery shows normal course, caliber and opacification. Its division into the posterior cerebral arteries is defined. Bilateral P1 and P2 segments are normal. Visualized venous structures show normal opacification. No evidence of intracranial aneurysm or AV malformation is seen. IMPRESSION: 1. No evidence of aneurysm. No evidence of dissection. 2. 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 Diffuse atheroscleotic changes with eccentric calcifications involving C5-C7 segments of bilateral internal carotid areteries with no significant stenosis 4. Non dominant right vertebral artery Electronically signed by Anjel Edge 12-02-2024 03:59 AM Neck CTA 12/02/24 02:41 EXAM: CT angio neck with con CLINICAL HISTORY: neuro deficit, acute stroke suspected, R arm/leg TECHNIQUE: Contrast enhanced thin slice CT angiography scan of the carotid vessels was performed with intravenous contrast. Angiographic images were processed, 3D MIP images were acquired for interpretation.Contiguous axial images were obtained. Reformatted coronal and sagittal images were also reviewed. If IV contrast material had not been administered, the likelihood of detecting abnormalities relevant to the patients condition would have been substantially decreased. CT scan was performed according to ALARA (as low as reasonable achievable). COMPARISON: None. FINDINGS: Atherosclerotic calcifications are noted involving bilateral carotid bulb without significant stenosis. Included great vessels of the aortic arch are grossly unremarkable. Common carotid artery, carotid Bulb, internal carotid artery , and origin of the external carotid artery are well opacified. Vertebral arteries are well opacified. Jugular veins are well opacified. Included lung apices are grossly unremarkable. Thyroid gland appears unremarkable. IMPRESSION: No evidence of stenosis or aneurysm. No evidence of dissection. Atherosclerotic calcifications are noted involving bilateral carotid bulb without significant stenosis. Electronically signed by Anjel Edge 12-02-2024 03:48 AM Brain MRI 12/02/24 04:08 EXAM: MR brain wo con CLINICAL HISTORY: ? CVA TECHNIQUE: MRI of the brain was performed without contrast with multiplanar sequences obtained. COMPARISON: Comparison is made with prior CT dated 12/02/2024. FINDINGS: Brain Parenchyma: Age related involutional changes. Small vessel ischemic changes in white matter of bilateral cerebral hemispheres showing punctate and nodular T2/FLAIR hyperintense foci. No evidence of acute infarction or hemorrhage. Normal orozco-white matter differentiation. Ventricles and Sulci: Prominent lateral ventricles, third ventricle, and fourth ventricle. Sylvian fissures, sulci, and cisterns are prominent. Posterior Fossa: Cerebellum and brainstem appear normal without evidence of mass lesions or signal abnormalities. Cranial Nerves: Normal course and appearance of cranial nerves identified. Vessels: No evidence of vascular malformations or aneurysms. Intracranial arteries and veins appear normal without evidence of stenosis or occlusion. Orbits and Skull Base: Orbits and skull base structures are normal without evidence of abnormalities. Mild mucosal thickening in bilateral maxillary sinuses. IMPRESSION: 1. No acute intracranial abnormality identified. 2. Age-related involutional changes, stable. 3. Small vessel ischemic changes in white matter of bilateral cerebral hemispheres, stable. Electronically signed by Sergio Lyman 12-02-2024 10:13 AM Chest X-Ray 12/02/24 04:17 EXAM: XR chest 1V portable CLINICAL HISTORY: ARF. TECHNIQUE: An X-ray image of the chest is obtained in AP projection. COMPARISON: No prior studies are available for comparison. FINDINGS: Pulmonary Parenchyma: No evidence of consolidation, collapse, or focal opacities. No pulmonary nodules are identified. No evidence of pleural effusion or pleural thickening. Heart and Mediastinum: Heart size and shape are normal. No mediastinal widening or masses. No hilar or mediastinal lymphadenopathy. Bony Thorax: Bony thorax appears intact without fractures or deformities. Soft Tissues: Soft tissues overlying the chest wall are unremarkable. IMPRESSION: No acute cardiopulmonary pathology. Electronically signed by Sergio Lyman 12-02-2024 05:56 AM Abdomen/Pelvis CT 12/02/24 05:02 EXAM: CT abd pelvis wo con CLINICAL HISTORY: hematuria, abd pain TECHNIQUE: Contiguous axial images were obtained from the level of the diaphragm to the pubic symphysis without intravenous or oral contrast. Coronal and sagittal reconstructions were likewise performed and indicated to increase the sensitivity for detecting clinically relevant pathology. CT scan was performed according to ALARA (as low as reasonable achievable). COMPARISON: December 15/2023 07:18:20 CAN MARKER FINDINGS: The visualized lung bases are clear. Evaluation of the abdominal and pelvic visceral organs is limited without intravenous contrast. The unenhanced liver, spleen, and adrenal glands are grossly unremarkable. Approximately 8.2 x 13.6 cm size thin walled cystic lesion is noted along the greater curvature of stomach between the gastropancreatic space which abuts the tail of pancreas Few tiny calcifications are noted in the tail of pancreas - sequelae of chronic pancreatitis appears likely Rest of pancreas appears normal. The gallbladder is present. The kidneys are normal in size and attenuation without obvious calcification. There is no hydronephrosis or perinephric stranding. Few simple cortical cyst are noted in both kidneys Bilateral kidneys and ureter shows contrast excretion within, likely due to prior contrast study - limit the evaluation of calculi. The ureters are normal in caliber. No adenopathy or fluid collections are seen. No evidence of focal or diffuse bowel wall thickening or evidence of bowel obstruction is seen. No inflamed appendix is visualized in the right lower quadrant. The aorta is normal in caliber. The urinary bladder is normal in contour. Prostate appears enlarged in size measures about 89 x 66 mm Multiple small uncomplicated sigmoid colonic diverticulosis No aggressive appearing osseous lesions are identified. IMPRESSION: 1. Approximately 8.2 x 13.6 cm size thin walled cystic lesion is noted along the greater curvature of stomach between the gastropancreatic space which abuts the tail of pancreas- possibility of pseudopancreatic cyst- clinical correlation suggested.-new finding. 2. Few calcifications are noted in the tail of pancreas- sequelae of chronic pancreatitis appears likely-new finding. 3. Enlarged prostate-stable. 4. Multiple small uncomplicated sigmoid colonic diverticulosis-stable. 5. Bilateral kidneys and ureter shows contrast excretion within, likely due to prior contrast study - limit the evaluation of calculi. Electronically signed by Anjel Edge 12-02-2024 07:12 AM Medications Administered Home Medications Medication Instructions Recorded Confirmed Last Taken amlodipine 5 mg tablet 5 mg PO DAILY #30 tabs 04/11/19 12/02/24 12/01/24 aspirin 81 mg tablet,delayed 81 mg PO DAILY #30 tabs 04/11/19 12/02/24 12/01/24 release clopidogrel 75 mg tablet 75 mg PO DAILY #30 tabs 04/11/19 12/02/24 12/01/24 fenofibrate micronized 200 mg 200 mg PO DAILY #30 caps 04/11/19 12/02/24 12/01/24 capsule insulin aspart U-100 100 unit/mL 32 units (0.32 mL) subcut TID #10 04/11/19 12/02/24 12/01/24 subcutaneous solution (Novolog mL U-100 Insulin aspart) levothyroxine 200 mcg tablet 200 mcg PO DAILY #30 tabs 04/11/19 12/02/24 12/01/24 metformin 1,000 mg tablet 1,000 mg PO BID #60 tabs 04/11/19 12/02/24 12/01/24 pravastatin 20 mg tablet 20 mg PO DAILY #90 tabs 07/31/19 12/02/24 12/01/24 tamsulosin 0.4 mg capsule 0.4 mg PO DAILY #90 caps 11/18/23 12/02/24 12/01/24 acyclovir 400 mg tablet 400 mg PO BID 12/02/24 12/02/24 12/01/24 carvedilol 25 mg tablet (Coreg) 25 mg PO AMPM 12/02/24 12/02/24 12/01/24 coenzyme Q10 200 mg capsule 200 mg PO QAM 12/02/24 12/02/24 12/01/24 diclofenac sodium 75 mg 75 mg PO BID 12/02/24 12/02/24 12/01/24 tablet,delayed release evolocumab 140 mg/mL subcutaneous 140 mg subcut USEASDIRECTD 12/02/24 12/02/24 11/14/24 pen injector (Repatha SureClick) insulin aspart U-100 100 unit/mL 32 unit subcut TID 12/02/24 12/02/24 12/01/24 (3 mL) subcutaneous pen (Novolog FlexPen U-100 Insulin aspart) insulin glargine 100 unit/mL (3 110 unit subcut HS 12/02/24 12/02/24 12/01/24 mL) subcutaneous pen (Lantus Solostar U-100 Insulin) isosorbide mononitrate 30 mg 30 mg PO QAM 12/02/24 12/02/24 12/01/24 tablet,extended release 24 hr omega 7-jrk-xzc-fish oil 1,000 mg 1 cap PO DAILY 12/02/24 12/02/24 12/01/24 (120 mg-180 mg) capsule (Fish Oil) valsartan 160 1 tab PO QAM 12/02/24 12/02/24 12/01/24 mg-hydrochlorothiazide 25 mg tablet (Diovan HCT) Active Medications Generic Name Dose Route Start Last Admin Trade Name Freq PRN Reason Stop Dose Admin Acyclovir 400 mg 12/02/24 09:00 12/02/24 07:53 Acyclovir 400 Mg Tab PO 01/01/25 08:59 400 mg BID DIALLO Administration Aspirin 81 mg 12/02/24 09:00 12/02/24 07:52 Aspirin 81 Mg Ectab PO 01/01/25 08:59 81 mg DAILY DIALLO Administration Clopidogrel Bisulfate 75 mg 12/02/24 09:00 12/02/24 07:52 Clopidogrel Bisulfate 75 Mg Tab PO 01/01/25 08:59 75 mg QAM DIALLO Administration Fenofibrate 145 mg 12/02/24 09:00 12/02/24 07:53 Fenofibrate Nanocrystallized 145 Mg Tablet PO 01/01/25 08:59 145 mg DAILY DIALLO Administration Ceftriaxone Sodium 2,000 mg in 50 mls @ 100 mls/hr 12/02/24 12:00 12/02/24 12:51 Rocephin IV 12/12/24 11:59 Infused Q24H DIALLO Infusion Sodium Chloride 1,000 mls @ 60 mls/hr 12/02/24 12:00 12/02/24 12:21 Nss IV 12/03/24 04:39 60 mls/hr .[id number] DIALLO Administration Levothyroxine Sodium 200 mcg 12/02/24 06:30 12/02/24 05:57 Levothyroxine Sodium 200 Mcg Tablet PO 01/01/25 06:29 200 mcg DAILYBB DIALLO Administration Pravastatin Sodium 20 mg 12/02/24 09:00 12/02/24 07:53 Pravastatin Sod 20 Mg Tab PO 01/01/25 08:59 20 mg DAILY DIALLO Administration Tamsulosin HCl 0.4 mg 12/02/24 09:00 12/02/24 07:53 Tamsulosin Hcl 0.4 Mg Cap PO 01/01/25 08:59 0.4 mg DAILY DIALLO Administration
[2024-12-02] MEDS: LANTUS PER UNIT CHARGE SQ SCH (19:58)
[2024-12-03 05:49] LABS: Hematocrit (blood only) 38.6 % (42.0-52.0); Hemoglobin 12.8 g/dl (14.0-18.0); Mean Corpuscular Hemoglobin 28.2 pg (25.0-34.0); Mean Corpuscular Volume 85.0 fL (80.0-100.0); Platelet Count 162 K/uL (130-400); RDW Standard Deviation 41.8 fL (36.4-46.3); Red Blood Count 4.54 M/uL (4.70-6.10); White Blood Count 5.02 K/ul (4.8-10.8)
[2024-12-03 06:07] LABS: Anion Gap 7.0 (3-11); Blood Urea Nitrogen 22.0 mg/dl (6-23); Calcium 9.5 mg/dl (8.6-10.3); Carbon Dioxide 27.0 mmol/L (21-32); Chloride 106.0 mmol/L (98-107); Cholesterol 125.0 mg/dl (0-200); Creatinine Clr Calc Pharmacy 75.8 ml/min; Glucose 135.0 mg/dl (70-99(Fasting)); HDL Cholesterol 30.0 mg/dl; Magnesium 1.8 mg/dl (1.7-2.4); Potassium 4.2 mmol/L (3.5-5.1); Sodium 140.0 mmol/L (136-145); Triglycerides 141.0 mg/dl (0-150)
[2024-12-03 07:20] LABS: Hemoglobin A1C 7.6 % (4.5-5.6)
[2024-12-03] MEDS: ACETAMINOPHEN 325 MG TAB PO PRN (07:37)
[2024-12-03] MEDS: ISOSORBIDE MONO EXTENDED REL 30 MG TABCR PO SCH (09:35)
--- NOTE | 2024-12-03 09:53 | Communication Note ---
Date of Service: December 03, 2024 Patient sleeping. Discussed with primary team, pseudocyst needs to be addressed and timing needs to be determined by CT surgery and therapeutic endoscopist. Nothing to do from my standpoint. Okay to go home from GI standpoint. Will sign off. Please reconsult as needed.
--- NOTE | 2024-12-03 14:03 | Hospitalist Progress Note ---
Date of Service December 03, 2024 Assessment & Plan (1) TIA (transient ischemic attack): Plan: 68 yo M w/ PMH of CAD s/p stent (ACS s/p RCA stent in 2013), hypertension, hyperlipidemia, CRI (baseline creatinine 1.4), DM 2 insulin requiring, hypothyroidism, BPH, urolithiasis, GERD, HSV on chronic suppression Rx, past tobacco abuse presents to ED 12/02 c/i w/ c/o right sided weakness/numbness with a sensation of imbalance x 1 day. No headache or dizziness. 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 Denied fever/chills. Denies unusual chest pain/SOB on exertion. Patient underwent outpatient diagnostic cardiac catheterization at [facility] [place] days ago because of abnormal stress test. Hemodynamically significant CAD on cath. Left main with mild disease. Mid LAD with 90% stenosis followed by diffuse disease. 60% OM2 occlusion. D RCA 100% chronic total occlusion. Severe RPDA disease as per report. Outpatient [facility] [place] surgery referral for possible CABG scheduled for next week. 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 TIA (transient ischemic attack): Patient presents with right sided weakness of the extremities and right hand numbness/tingling. CT head, CTA of head and neck reviewed. MRI brain with small vessel ischemic changes in white matter of bilateral cerebral hemisphere, stable. ECHO w/ EF of 45-50%, no interatrial shunt. A1c 7.6, LDL 67. c/w DAPT 12/02 Neurology evaled, recs DAPT, zio patch on dc, increase pravastatin to 40 mg daily. Patient reports significant improvement in his right extremity weakness and right hand numbness tingling. Continue with neurochecks and telemetry monitoring. Continue with PT/OT. Hypertension: History of, initially elevated at presentation in the setting of TIA, now better. Continue with home medications Abnormal CTAP/possible pancreatic pseudocyst: Admitting CTAP suggestive of 8.2 x 13.6 cm cystic lesion along the greater curvature of stomach between gastropancreatic space with about the tail of pancreas. Findings concerning for chronic pancreatitis noted. Lipase WNL. GI evaluated, recommends outpatient therapeutic endoscopist eval. Patient with no nausea/vomiting/upper abdominal pain. He is moving bowels okay. Denies unintentional weight loss. Hematuria/complicated UTI: start rocephin 12/02, await urine cx. ARF on CKD: baseline Cr around 1.4, admitting Cr of 2.18. Cr resolved, s/p ivf. c/w home meds as able. Demand ischemia: Troponin flat trend around 20, patient with no chest pain. Demand ischemia in the setting of acute illness. Continue telemetry monitoring. echo as above. Other chronic medical conditions: Continue with/resume home meds as and when able. hx CAD status post stent, multivessel CAD on recent diagnostic cardiac catheterization, patient scheduled to see [facility] surgeon for evaluation for CABG next week hyperlipidemia, on statin Rx DM 2 insulin requiring, suboptimal control as of recent hemoglobin A1c of 7.6 last July 2024 hypothyroidism, euthyroid as above recent outpatient TSH past tobacco abuse DVT prophylaxis. SCDs re: hematuria Full code Patient partner Ms. Briseida Rich, contact #[phone]. Text document was generated using [email or web address] voice recognition software. It may contain grammatical or spelling errors. Kindly contact undersigned for clarification of any documentation item in question. Admission and Anticipated Discharge Date Admission Date: December 02, 2024 Subjective Patient was seen and examined at bedside. Patient was lying in bed, on room air, NAD, resting comfortably. Patient reports improvement in his right-sided weakness, improvement in his right hand numbness/tingling. Patient reports eating okay and reports feeling better today. Patient denies any further hematuria concerns. Physical Exam Physical Exam: GENERAL: Comfortable, NAD, pleasant, slightly hard of hearing, obese, no respiratory distress SKIN: Normal color, warm HEENT: Alopecia, pink palpebral conjunctivae, no ptosis, moist buccal mucosa NECK : Supple, no tenderness CHEST : CTA, no tenderness HEART : RRR, no obvious murmurs ABDOMEN: Some distention, minimal hypogastric tenderness, no CVA angle tenderness. EXTREMITIES : No LE swelling/tenderness, palpable pulses, no other conspicuous deformities noted NEUROLOGIC : Coherent, no facial asymmetry, MMTs 5/5, gait and stance not assessed Results & Data Results & Data Vital Signs (Past 12 Hours) Vital Signs Temp Pulse Pulse Resp BP Pulse Ox O2 Del Method 12/03/24 12:59 81 12/03/24 11:23 36.8 C 71 18 121/74 92 Room Air 12/03/24 08:00 36.7 C 68 20 129/77 95 Room Air 12/03/24 05:46 72 12/03/24 04:33 36.9 C 72 20 124/76 95 Room Air
[2024-12-04 06:19] LABS: Hematocrit (blood only) 36.1 % (42.0-52.0); Hemoglobin 12.3 g/dl (14.0-18.0); Mean Corpuscular Hemoglobin 28.9 pg (25.0-34.0); Mean Corpuscular Volume 84.9 fL (80.0-100.0); Platelet Count 149 K/uL (130-400); RDW Standard Deviation 41.1 fL (36.4-46.3); Red Blood Count 4.25 M/uL (4.70-6.10); White Blood Count 4.97 K/ul (4.8-10.8)
[2024-12-04 06:50] LABS: Anion Gap 8.0 (3-11); Blood Urea Nitrogen 20.0 mg/dl (6-23); Calcium 9.6 mg/dl (8.6-10.3); Carbon Dioxide 27.0 mmol/L (21-32); Chloride 105.0 mmol/L (98-107); Creatinine Clr Calc Pharmacy 81.2 ml/min; Glucose 166.0 mg/dl (70-99(Fasting)); Potassium 4.1 mmol/L (3.5-5.1); Sodium 140.0 mmol/L (136-145)
--- NOTE | 2024-12-04 07:56 | Pharmacy Report ---
- Date of Service December 04, 2024 - Pharmacy CVA/TIA Medication Review Medications to Prevent Stroke handout has been added to the patients discharge packet. Antiplatelet(s) * Aspirin 81mg po daily + clopidogrel 75mg po daily Cholesterol * High intensity statin: Pravastatin 40mg po daily DVT Prophylaxis * SCD knee Therapeutic Anticoagulation * No history of Afib/Aflutter noted Type 2 Diabetes * Patient has T2DM and patient is prescribed empagliflozin
[2024-12-04] MEDS: PRAVASTATIN SOD 40 MG TAB PO SCH (08:22)
[2024-12-04] MEDS: VALSARTAN 80 MG TAB PO SCH (08:23)
[2024-12-04] MEDS: hydroCHLOROthiazide 25 MG TAB PO SCH (08:23)
--- NOTE | 2024-12-04 10:04 | Electrocardiogram Report ---
Test Reason : Blood Pressure : */* mmHG Vent. Rate : 67 BPM Atrial Rate : 67 BPM P-R Int : 208 ms QRS Dur : 112 ms QT Int : 394 ms P-R-T Axes : 60 -11 91 degrees QTcB Int : 416 ms Normal sinus rhythm Inferior infarct , age undetermined Anterior infarct , age undetermined Abnormal ECG When compared with ECG of 14-Nov-2015 11:52, Anterior infarct is now Present Inferior infarct is now Present T wave inversion now evident in Lateral leads Confirmed by Olvin Savage ([id number]) on 12/04/2024 10:03:45 AM Referred By: REFERRED SELF Confirmed By: Olvin Savage
[2024-12-04] MEDS ORDERED: STROKE PATIENT DISCHARGE STA (11:17)
--- NOTE | 2024-12-04 11:25 | Discharge Summary ---
Date of Service December 04, 2024 Admission HPI Per Admitting Provider History obtained from patient, family, and records. Medical history significant for CAD status post stent, hypertension, hyperlipidemia, CRI (baseline creatinine 1.4), DM 2 insulin requiring, hypothyroidism, BPH, urolithiasis, GERD, HSV on chronic suppression Rx, past tobacco abuse. Last confinement 2013 for ACS status post RCA stent placement. Patient underwent outpatient diagnostic cardiac catheterization at [facility] 3 days ago because of abnormal stress test. Hemodynamically significant CAD on cath. Left main with mild disease. Mid LAD with 90% stenosis followed by diffuse disease. 60% OM2 occlusion. D RCA 100% chronic total occlusion. Severe RPDA disease as per report. Outpatient [facility] [place] surgery referral for possible CABG scheduled for next week. 2 days ago, patient noted achy lower abdominal discomfort associated with intermittent hematuria symptoms. No fever, no chills. Yesterday, patient had right sided weakness/numbness with a sensation of imbalance. No headache, no dizziness. Patient compliant with home medications. 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 Denies unusual chest pain/SOB on exertion. Stroke alert called upon arrival at the ER. Right sided numbness/weakness symptoms currently improving as per patient. 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 Admission Exam Per Admitting Provider GENERAL: Comfortable, slightly anxious, pleasant, slightly hard of hearing, obese, no respiratory distress SKIN: Normal color, warm HEENT: Alopecia, pink palpebral conjunctivae, no ptosis, moist buccal mucosa NECK : Supple, no tenderness CHEST : CTA, no tenderness HEART : RRR, no obvious murmurs ABDOMEN: Some distention, minimal hypogastric tenderness EXTREMITIES : No LE swelling/tenderness, palpable pulses, no other conspicuous deformities noted NEUROLOGIC : Coherent, no facial asymmetry, MMTs 5/5, gait and stance not assessed Principal Diagnosis TIA (transient ischemic attack) Abnormal CTAP/possible pancreatic pseudocyst Hematuria/complicated UTI ARF on CKD Constipation Discharge Exam GENERAL: Comfortable, NAD, pleasant, slightly hard of hearing, obese, no respiratory distress SKIN: Normal color, warm HEENT: Alopecia, pink palpebral conjunctivae, no ptosis, moist buccal mucosa NECK : Supple, no tenderness CHEST : CTA, no tenderness HEART : RRR, no obvious murmurs ABDOMEN: no distention, no hypogastric tenderness, no CVA angle tenderness. EXTREMITIES : No LE swelling/tenderness, palpable pulses, no other conspicuous deformities noted NEUROLOGIC : Coherent, no facial asymmetry, MMTs 5/5, gait and stance not assessed Discharge Data Allergies Allergy/AdvReac Type Severity Reaction Status Date / Time No Known Allergies Allergy Verified 12/02/24 04:13 Consultations 12/02/24 04:07 ED Decision to Admit Stat 12/02/24 07:40 Consult Gastroenterology Routine 12/02/24 11:02 Consult Neurology Routine Ordered Studies 12/02/24 02:41 CT angio head w con Stat CT angio neck with con Stat CT head/brain wo con Stat 12/02/24 04:08 MR brain wo con Stat 12/02/24 05:02 CT abd pelvis wo con Stat Hospital Course (1) TIA (transient ischemic attack): 68 yo M w/ PMH of CAD s/p stent (ACS s/p RCA stent in 2013), hypertension, hyperlipidemia, CRI (baseline creatinine 1.4), DM 2 insulin requiring, hypothyroidism, BPH, urolithiasis, GERD, HSV on chronic suppression Rx, past tobacco abuse presents to ED 12/02 c/i w/ c/o right sided weakness/numbness with a sensation of imbalance x 1 day. No headache or dizziness. 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 Denied fever/chills. Denies unusual chest pain/SOB on exertion. Patient underwent outpatient diagnostic cardiac catheterization at [facility] 3 days ago because of abnormal stress test. Hemodynamically significant CAD on cath. Left main with mild disease. Mid LAD with 90% stenosis followed by diffuse disease. 60% OM2 occlusion. D RCA 100% chronic total occlusion. Severe RPDA disease as per report. Outpatient [facility] [place] surgery referral for possible CABG scheduled for next week. 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 He was managed for the following: TIA (transient ischemic attack): Patient presents with right sided weakness of the extremities and right hand numbness/tingling. CT head, CTA of head and neck reviewed. MRI brain with small vessel ischemic changes in white matter of bilateral cerebral hemisphere, stable. ECHO w/ EF of 45-50%, no interatrial shunt. A1c 7.6, LDL 67. 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 Neurology evaled, recs DAPT, zio patch on dc, increase pravastatin to 40 mg daily. Patient reports significant improvement in his right extremity weakness and right hand numbness tingling. almost > 95% improvement per pt. PT/OT evaled, appreciate recs. Hypertension: History of, initially elevated at presentation in the setting of TIA, now better. Continue with home medications Abnormal CTAP/possible pancreatic pseudocyst: Admitting CTAP suggestive of 8.2 x 13.6 cm cystic lesion along the greater curvature of stomach between gastropancreatic space with about the tail of pancreas. Findings concerning for chronic pancreatitis noted. Lipase WNL. GI evaluated, recommends outpatient therapeutic endoscopist eval. Patient with no nausea/vomiting/upper abdominal pain. He is moving bowels okay. Denies unintentional weight loss. Pt has been made aware of this finding multiple times and recommended endoscopist eval upon discharge. Hematuria/complicated UTI: start rocephin 12/02, await urine cx, urine cx pending, pt would like to go home today, has appointment w/ CT surgeon marce per pt. Pt will be dc'd on antibiotic to complete the course. Pt advised to f/u on final results of urine cx when f/u w/ pcp office within a week time of discharge. ARF on CKD: baseline Cr around 1.4, admitting Cr of 2.18. Cr resolved, s/p ivf. c/w home meds as able. Demand ischemia: Troponin flat trend around 20, patient with no chest pain. Demand ischemia in the setting of acute illness. Continue telemetry monitoring. echo as above. Other chronic medical conditions: Continue with/resume home meds as and when able. hx CAD status post stent, multivessel CAD on recent diagnostic cardiac catheterization, patient scheduled to see [facility] surgeon for evaluation for CABG this week hyperlipidemia, on statin Rx DM 2 insulin requiring, suboptimal control as of recent hemoglobin A1c of 7.6 last July 2024 hypothyroidism, euthyroid as above recent outpatient TSH past tobacco abuse DVT prophylaxis. SCDs re: hematuria Full code Patient partner Ms. Briseida Rich, contact #[phone]. Patient is being discharged to home with following instructions at the point of discharge: Follow-up with your primary care physician within a week time and likely you will need labs CBC/CMP/magnesium/phosphorus. You were evaluated for transient ischemic stroke, continue your aspirin and Plavix as prior. Avoid omeprazole while on plavix. Your statin dose has been increased. You will benefit from Zio patch monitoring as an outpatient, coordinate with your PCP office to set up the test. You are also noted to have large cysts in your abdomen, possibly pancreatic pseudocyst. You will need evaluation by therapeutic endoscopist possibly prior to your planned CABG. Coordinate with your PCP office to set up the referral. You will be discharged on antibiotic to complete the treatment for possible UTI. Utilize ajji-zpj-yerwgnp laxatives and stool softeners [MiraLAX, Colace] per engineering technician parking's instruction/direction with a goal of 1-2 bowel movements a day. Follow-up with your CT surgery evaluation as planned previously. Take your medications as prescribed. Please make sure that you are able to get your medications today by calling your pharmacy before you leave the hospital so that your treatment continuity is not broken. Text document was generated using [employer] voice recognition software. It may contain grammatical or spelling errors. Kindly contact undersigned for clarification of any documentation item in question. Home Health Attestation I certify that this patient is under my care and that I, or a physicians paperhanger assistant working with me, had a face to-face encounter that meets the home health [id number] encounter requirements with this patient. The encounter with the patient was in whole, or in part, for the following medical condition, which is the primary reason for home health care (list medical condition): I certify that, based on my findings, the following services are medically necessary home health services: My clinical findings support the need for the above services because: Further, I certify that my clinical findings support that this patient is homebound (i.e. absences from home require considerable and taxing effort and are for medical reasons or sabianism services or infrequently or of short duration when for other reasons) because: Certification for Home Health Services: Based on the above findings, I certify that this patient is confined to the home and needs intermittent correction care, physical therapy and/or speech therapy or continues to need occupational therapy. The patient is under my care, and I have initiated the establishment of the plan of care. This patient will be followed by a physician who will periodically review the plan of care. Total Time Total Time Spent Total Time Spent (In Minutes): 45 Discharge Plan Discharge Items Patient Disposition: Home - Self-Care Reason For Visit: TIA, HEMATURIA Discharge Diagnosis: TIA (transient ischemic attack) Abnormal CTAP/possible pancreatic pseudocyst Hematuria/complicated UTI ARF on CKD Constipation Condition on Discharge: Fair Activity: Resume your previous activity Non-emergency contact: Primary Care Provider Call non-emergency contact if: you have any medication questions Follow-up/Referrals: Anjel Martinez MD [Primary Care Provider] - (Date & Time 12/08/2024 11:20 AM Provider: Andrei Collazo MD Family [facility]) Diet: Carb Consistent or DM2 and Heart Healthy Addtl Attending Provider Instructions: Follow-up with your primary care physician within a week time and likely you will need labs CBC/CMP/magnesium/phosphorus. You were evaluated for transient ischemic stroke, continue your aspirin and Plavix as prior. Avoid omeprazole while on plavix. Your statin dose has been increased. You will benefit from Zio patch monitoring as an outpatient, coordinate with your PCP office to set up the test. You are also noted to have large cysts in your abdomen, possibly pancreatic pseudocyst. You will need evaluation by therapeutic endoscopist possibly prior to your planned CABG. Coordinate with your PCP office to set up the referral. You will be discharged on antibiotic to complete the treatment for possible UTI. Utilize ceem-ypu-ulafeys laxatives and stool softeners [MiraLAX, Colace] per engineering technician parking's instruction/direction with a goal of 1-2 bowel movements a day. Follow-up with your CT surgery evaluation as planned previously. Take your medications as prescribed. Please make sure that you are able to get your medications today by calling your pharmacy before you leave the hospital so that your treatment continuity is not broken. Pending Studies at Discharge: Yes (Urine Cx final results) Stand-Alone Forms: My [employer], Smoking Cessation, Medications to Prevent Stroke Medications and DC Order Prescriptions: New pravastatin 40 mg Tablet 40 mg PO DAILY Qty: 30 0RF cefdinir 300 mg capsule 300 mg PO BID 5 Days Qty: 10 0RF Probiotic 3 billion cell capsule 3,000 mmu cells PO DAILY 7 Days Qty: 7 0RF Rx Instructions: administer with a meal Continued tamsulosin 0.4 mg capsule 0.4 mg PO DAILY Qty: 90 3RF clopidogrel 75 mg tablet 75 mg PO DAILY Qty: 30 2RF metformin 1,000 mg tablet 1,000 mg PO BID Qty: 60 2RF Novolog U-100 Insulin aspart 100 unit/mL solution 32 units SQ TID Qty: 10 2RF aspirin 81 mg tablet,delayed release (DR/EC) 81 mg PO DAILY Qty: 30 2RF fenofibrate micronized 200 mg capsule 200 mg PO DAILY Qty: 30 2RF levothyroxine 200 mcg tablet 200 mcg PO DAILY Qty: 30 2RF amlodipine 5 mg tablet 5 mg PO DAILY Qty: 30 2RF Repatha SureClick 140 mg/mL pen injector 140 mg SUBCUT USEASDIRECTD Rx Instructions: every 2 weeks carvedilol [Coreg] 25 mg tablet 25 mg PO AMPM isosorbide mononitrate 30 mg tablet extended release 24 hr 30 mg PO QAM acyclovir 400 mg tablet 400 mg PO BID valsartan-hydrochlorothiazide [Diovan HCT] 160-25 mg tablet 1 tab PO QAM insulin aspart U-100 [Novolog FlexPen U-100 Insulin] 100 unit/mL (3 mL) insulin pen 32 unit SUBCUT TID coenzyme Q10 200 mg Capsule 200 mg PO QAM insulin glargine [Lantus Solostar U-100 Insulin] 100 unit/mL (3 mL) insulin pen 110 unit SUBCUT HS omega 5-txp-ogh-fish oil [Fish Oil] 1,000 (120-180) mg Capsule 1 cap PO DAILY Discontinued pravastatin 20 mg tablet 20 mg PO DAILY Qty: 90 3RF diclofenac sodium 75 mg tablet,delayed release (DR/EC) 75 mg PO BID Discharge Orders: Discharge Order (Routine); Ordered 12/04/24 Ordered By: Eduin Sears/Other Patient Handouts: Managing Type 2 Diabetes Admission Data Admit Date/Time: 12/02/24 04:21 Attending Provider: Eduin Phillips Admit Provider: Prasad Machado Primary Care Provider: Anjel Martinez Other Providers: Prasad Machado; Aneudy Kumar Jr; Mando Carlos
--- NOTE | 2024-12-06 10:41 | Pharmacy Report ---
Pharmacist Stroke Counseling - Date of Service December 06, 2024 - Scope: Pharmacy has been consulted to provide medication discharge counseling for this patient admitted with transient ischemic attack as per the Pharmacist Discharge Counseling for Stroke Patients Protocol. - Medications on Discharge: Home Medications Medication Instructions Recorded Confirmed acyclovir 400 mg tablet 400 mg PO BID 12/02/24 12/02/24 carvedilol 25 mg tablet (Coreg) 25 mg PO AMPM 12/02/24 12/02/24 coenzyme Q10 200 mg capsule 200 mg PO QAM 12/02/24 12/02/24 evolocumab 140 mg/mL subcutaneous 140 mg subcut USEASDIRECTD 12/02/24 12/02/24 pen injector (Repatha SureClick) insulin aspart U-100 100 unit/mL 32 unit subcut TID 12/02/24 12/02/24 (3 mL) subcutaneous pen (Novolog FlexPen U-100 Insulin aspart) insulin glargine 100 unit/mL (3 110 unit subcut HS 12/02/24 12/02/24 mL) subcutaneous pen (Lantus Solostar U-100 Insulin) isosorbide mononitrate 30 mg 30 mg PO QAM 12/02/24 12/02/24 tablet,extended release 24 hr omega 7-yuk-ona-fish oil 1,000 mg 1 cap PO DAILY 12/02/24 12/02/24 (120 mg-180 mg) capsule (Fish Oil) valsartan 160 1 tab PO QAM 12/02/24 12/02/24 mg-hydrochlorothiazide 25 mg tablet (Diovan HCT) New Rx's Medication Instructions Recorded amlodipine 5 mg tablet 5 mg PO DAILY #30 tabs 04/11/19 aspirin 81 mg tablet,delayed 81 mg PO DAILY #30 tabs 04/11/19 release clopidogrel 75 mg tablet 75 mg PO DAILY #30 tabs 04/11/19 fenofibrate micronized 200 mg 200 mg PO DAILY #30 caps 04/11/19 capsule insulin aspart U-100 100 unit/mL 32 units (0.32 mL) subcut TID #10 04/11/19 subcutaneous solution (Novolog mL U-100 Insulin aspart) levothyroxine 200 mcg tablet 200 mcg PO DAILY #30 tabs 04/11/19 metformin 1,000 mg tablet 1,000 mg PO BID #60 tabs 04/11/19 tamsulosin 0.4 mg capsule 0.4 mg PO DAILY #90 caps 11/18/23 cefdinir 300 mg capsule 300 mg PO BID 5 days #10 caps 12/04/24 lactobacillus combination no.4 3 3,000 mmu cells PO DAILY 1 week #7 12/04/24 billion cell capsule (Probiotic) caps pravastatin 40 mg tablet 40 mg PO DAILY #30 tabs 12/04/24 - Action: The above medications, specifically ones for stroke treatment/prophylaxis, have been reviewed in detail with the patient and/or patient union representative(s) prior to discharge. This includes indication, common adverse reactions, drug interactions, and medication administration. Medication counseling has been employed using the teach-back method to ensure understanding. - Outcome: The patient and/or patient union representative(s) have demonstrated understanding of the medications. Additional comments: Spoke with Kole this morning. He has been to the pharmacy and picked up his medications. He understands that Neurology recommends to increase his pravastatin from 20mg to 40mg. He also reports that when taking these medications that he gets muscle pain so is not consistent. Reports taking the Repatha shot to aid with cholesterol as well. Discussed the benefits of statins beyond cholesterol to reduce risk of heart attack or stroke. Discussed to talk with PCP about cholesterol medications, lipid panel this admission normal. He is aware to continue aspirin and Plavix at this time. Discussed diabetes medications to prevent stroke and how he is currently not on a SGLT-2 or GLP-1 medication, he will discuss with PCP about starting a DM med with proven CVD benefit, A1c 7.6% (12/03/24) with some room for improvement. Planning to make a primary care appointment today. All questions answered. Thank you for allowing pharmacy to be involved in the care of this patient. Please call [phone] with any additional questions
== END 2024-12-04 12:55 | disposition home or self-care (01) ==
LOC: ED 02:26 → 2N 02:26 → SUATTDRO 04:21 → 2N 05:04